=== PATIENT | male | born 1980 | race Caucasian/White ===

== ENCOUNTER 2020-03-05 10:04 | Observation (INO) | payer MEDICAID ==
[2020-03-05 10:09] VITALS: RESP 18; TEMP 97.4
[2020-03-05] MEDS ORDERED: SODIUM CHLORIDE 0.9% 500 ML 500 ML IV STA (10:21)
--- NOTE | 2020-03-05 10:29 | ED ---
Chest Pain HPI - General Chief Complaint: Chest Pain Stated Complaint: Chest Pain Time Seen by Provider: 03/05/20 10:12 Source: patient, RN notes reviewed Mode of arrival: wheelchair Limitations: no limitations - History of Present Illness Initial Comments: This a 40-year-old male presents emergency Department chief complaint of chest discomfort. Patient states started yesterday while walking. He states he started walking short distances when he had a sudden onset of left-sided chest pressure and pain. He states he does not feel short of breath. Nothing makes it feel better or worse. He feels occasionally that the pain does radiate to his back/ left shoulder. Patient denies any trauma no rashes. Patient states is no history of coronary disease denies hypertension, hyperlipidemia, diabetes, smoking history. Patient states he has asthma but has no complaints of that at this time. He states the pain is had intermittent some of heartburn in which she took multiple Tums, Pepto-Bismol with no symptom symptoms. Patient has no complaints of abdominal pain, nausea, vomiting, diaphoresis and diarrhea constipation. Patient denies any leg pain or leg swelling - Related Data Home Medications Medication Instructions Recorded Confirmed Albuterol Inhaler [Ventolin Hfa 2 puff INHALATION RT-QID PRN 03/05/20 03/05/20 Inhaler] Lisdexamfetamine Dimesylate 30 mg PO QAM 03/05/20 03/05/20 [Vyvanse] Allergies Allergy/AdvReac Type Severity Reaction Status Date / Time amoxicillin [Amoxicillin] Allergy Dyspnea Verified 03/05/20 10:50 corn [[place]] Allergy Dyspnea Verified 03/05/20 10:50 house dust [House Dust] Allergy Dyspnea Verified 03/05/20 10:50 mold Allergy Dyspnea Verified 03/05/20 10:50 peanut Allergy Dyspnea Verified 03/05/20 10:50 Penicillins Allergy Dyspnea Verified 03/05/20 10:50 tree nut Allergy Dyspnea Verified 03/05/20 10:50 Review of Systems ROS Statement: Those systems with pertinent positive or pertinent negative responses have been documented in the HPI. ROS Other: All systems not noted in ROS Statement are negative. EKG Findings - EKG Comments: EKG Findings:: EKG performed at 10:21 sinus tachycardia rate of 112 VA 136 QRS 84 QT/QTC 336/458 - EKG Results: EKG: interpreted by ERMD Past Medical History Past Medical History: Asthma History of Any Multi-Drug Resistant Organisms: None Reported Past Surgical History: Adenoidectomy, Tonsillectomy Past Psychological History: No Psychological Hx Reported Smoking Status: Never smoker Past Alcohol Use History: None Reported Past Drug Use History: None Reported General Exam Limitations: no limitations General appearance: alert, in no apparent distress Head exam: Present: atraumatic, normocephalic, normal inspection Eye exam: Present: normal appearance, PERRL, EOMI. Absent: scleral icterus, conjunctival injection, periorbital swelling ENT exam: Present: normal exam, normal oropharynx, mucous membranes moist Neck exam: Present: normal inspection, full ROM. Absent: tenderness, meningismus, lymphadenopathy Respiratory exam: Present: normal lung sounds bilaterally. Absent: respiratory distress, wheezes, rales, rhonchi, stridor Cardiovascular Exam: Present: normal rhythm, tachycardia, normal heart sounds. Absent: systolic murmur, diastolic murmur, rubs, gallop, clicks GI/Abdominal exam: Present: soft, normal bowel sounds. Absent: distended, tenderness, guarding, rebound, rigid Extremities exam: Absent: pedal edema, calf tenderness Neurological exam: Present: alert, oriented X3, CN II-XII intact Skin exam: Present: warm, dry, intact, normal color. 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 Patient had mild tachycardia some mild EKG changes. Workup was negative. Concerning symptoms for ACS. Patient will be admitted for further evaluation treatment. Disposition Clinical Impression: Chest pain Disposition: ADMITTED IP TO THIS [facility] Referrals: Jourdan Maurer III, MD [Primary Care Provider] - 1-2 days
[2020-03-05 10:49] LABS: Basophils # (A) 0.1 k/uL (0-0.2); Basophils % (A) 1 %; Eosinophils # (A) 0.4 k/uL (0-0.7); Eosinophils % (A) 4 %; HCT 50.2 % (39.0-53.0); HGB 16.4 gm/dL (13.0-17.5); Lymphocytes # (A) 2.3 k/uL (1.0-4.8); Lymphocytes % (A) 26 %; MCH 28.9 pg (25.0-35.0); MCHC 32.7 g/dL (31.0-37.0); MCV 88.4 fL (80.0-100.0); Mean Platelet Volume 7.9; Monocytes # (A) 0.4 k/uL (0-1.0); Monocytes % (A) 4 %; Neutrophils # (A) 5.6 k/uL (1.3-7.7); Neutrophils % (A) 64 %; Platelet Count 315 k/uL (150-450); RBC 5.67 m/uL (4.30-5.90); WBC 8.8 k/uL (3.8-10.6)
--- NOTE | 2020-03-05 10:53 | XR ---
EXAMINATION TYPE: XR chest 2V DATE OF EXAM: 03/05/2020 COMPARISON: NONE HISTORY: Chest pain TECHNIQUE: Frontal and lateral views of the chest are obtained. FINDINGS: There is no focal air space opacity, pleural effusion, or pneumothorax seen. The cardiac silhouette size is within normal limits. The osseous structures are intact. There are overlying car diac leads. Patient is rotated. IMPRESSION: No acute cardiopulmonary process.
[2020-03-05 10:58] LABS: ALT 68 U/L (4-49); AST 47 U/L (17-59); African American GFR (CKD) >90 (>60 ml/min/1.73 sqM); Albumin 4.7 g/dL (3.5-5.0); Alkaline Phosphatase 105 U/L (38-126); Anion Gap 13 mmol/L; Blood Urea Nitrogen 12 mg/dL (9-20); Calcium 10.1 mg/dL (8.4-10.2); Carbon Dioxide 21 mmol/L (22-30); Chloride 105 mmol/L (98-107); Creatine Kinase 78 U/L (55-170); Glucose 110 mg/dL (74-99); Magnesium 1.9 mg/dL (1.6-2.3); Non-African American GFR(CKD) >90 (>60 ml/min/1.73 sqM); Potassium 4.5 mmol/L (3.5-5.1); Sodium 139 mmol/L (137-145); Total Protein 8.1 g/dL (6.3-8.2)
[2020-03-05 11:02] LABS: D-Dimer 0.22 mg/L FEU (<0.60); INR 0.9 (<1.2); Partial Thromboplastin Time 23.3 sec (22.0-30.0); Prothrombin Time 9.8 sec (9.0-12.0)
[2020-03-05] MEDS ORDERED: NITROGLYCERIN SL TABS 0.4 MG TAB SUBLINGUAL PRN (12:39)
[2020-03-05] MEDS ORDERED: HEPARIN SODIUM,PORCINE 5,000 UNIT/ML 1 ML VIAL IV PRN (12:39)
[2020-03-05] MEDS ORDERED: ASPIRIN 81 MG PO STA (12:39)
[2020-03-05] MEDS ORDERED: HEPARIN SODIUM,PORCINE 5,000 UNIT/ML 1 ML VIAL IV ONE (12:39)
[2020-03-05] MEDS ORDERED: HEPARIN SOD,PORK IN 0.45% NACL 25,000 UNIT in 0.45% NACL 1 250ML.BAG IV SCH (12:45)
[2020-03-05] MEDS ORDERED: HYDROcodone/APAP 5-325MG 1 EACH TAB PO PRN (13:57)
[2020-03-05] MEDS ORDERED: ALPRAZolam 0.25 MG TAB PO PRN (13:57)
[2020-03-05] MEDS ORDERED: TEMAZEPAM 15 MG CAP PO PRN (13:57)
[2020-03-05] MEDS ORDERED: ALBUTEROL NEBULIZED 2.5 MG/3 ML INHALATION PRN (14:02)
[2020-03-05 14:47] LABS: ALT 61 U/L (4-49); AST 41 U/L (17-59); African American GFR (CKD) >90 (>60 ml/min/1.73 sqM); Alkaline Phosphatase 92 U/L (38-126); Anion Gap 8 mmol/L; Blood Urea Nitrogen 12 mg/dL (9-20); Calcium 9.2 mg/dL (8.4-10.2); Carbon Dioxide 25 mmol/L (22-30); Chloride 106 mmol/L (98-107); Glucose 90 mg/dL (74-99); Non-African American GFR(CKD) >90 (>60 ml/min/1.73 sqM); Sodium 139 mmol/L (137-145)
--- NOTE | 2020-03-05 14:50 | HP ---
HISTORY AND PHYSICAL DATE OF SERVICE: 03/05/2020 CHIEF COMPLAINT: Chest pain. HISTORY OF PRESENT ILLNESS: This 40-year-old gentleman with a past medical history of asthma, adenoidectomy, tonsillectomy, being followed by Dr. Maurer in the outpatient setting, patient today this morning woke up with chest pain left-sided, which is mild to moderate intensity which is also radiating to the left shoulder and left scapular pain. The pain was precipitated by walking short distances. There is no history of shortness of breath associated palpitations, sweating also, The patient came to [facility] and admitted for further evaluation and treatment. There is no history of fever, rigors or chills. The EKG showed some nonspecific ST-T changes in inferior leads. PAST MEDICAL HISTORY: History of asthma, history of adenoidectomy, tonsillectomy. MEDICATIONS: Home medications are: Vyvanse, 30 mg p.o. q.a.m. and Ventolin 2 puffs q.i.d. p.r.n. ALLERGIES: AMOXICILLIN, CORN, HOUSE DUST, MOLD, PEANUTS, PENICILLIN, TREE NUTS. FAMILY HISTORY: History of heart disease in grandparents in 50s. SOCIAL HISTORY: No history of smoking. No history of alcohol intake. REVIEW OF SYSTEMS: ENT: No diminished vision/hearing. CARDIOVASCULAR as mentioned earlier. RESPIRATORY: As mentioned earlier. GI no nausea or vomiting. no dysuria. NERVOUS SYSTEM: No numbness or weakness. ALLERGY/IMMUNOLOGY: No history of asthma or hayfever. MUSCULOSKELETAL as mentioned earlier HEMATOLOGY/ONCOLOGY: No history of anemia. ENDOCRINE: No history of diabetes or hypothyroidism. CONSTITUTIONAL: As mentioned. DERMATOLOGY: Negative. RHEUMATOLOGY: Negative. PSYCHIATRY: As mentioned earlier. PHYSICAL EXAMINATION: Alert and oriented times three. Pulse is 101. Blood pressure is 121/95, respiration 18, temperature 97.4, pulse ox 98% on room air. HEENT: Conjunctivae normal. NECK: No JVD. CARDIOVASCULAR: S1, S2 normal. RESPIRATIONS: Breath sounds diminished in the bases. No rhonchi. No crackles. ABDOMEN: Soft, nontender. No mass palpable. LEGS: No edema, no swelling. NERVOUS SYSTEM: Higher functions as mentioned earlier. Moves all 4 limbs. No focal motor or sensory deficits. LYMPHATICS: No lymph nodes palpable in the neck, axillae or groin. SKIN: No ulcer, rash or bleeding. JOINTS: No active deforming arthropathy. LABS: At this time show CBC within normal limits. CO2 is 21 and glucose 110, ALT 68. ASSESSMENT: 1. Chest pain possible unstable angina, possibly musculoskeletal. 2. Sinus tachycardia with ST changes. 3. History of asthma. 4. History of adenoidectomy. 5. History of tonsillectomy. 6. Obesity with body mass index of 37.4. 7. Increased ALT, increased random blood sugar. RECOMMENDATION: This 40-year-old gentleman who presented with multiple medical issues, we will monitor the patient closely. Continue the current management and symptomatic treatment. Rule out myocardial infarction. Cardiology consultation. Possible stress test. Otherwise, continue to monitor. We will repeat ALT and blood sugars. Continue to monitor. Further recommendations to follow. A copy of this dictation being forwarded to Dr. Maurer who is the primary care physician. MMFIDELL / BYRONN: [id number] /
[2020-03-05 21:54] VITALS: BP 143/87; PULSE 90
[2020-03-06] MEDS ORDERED: ASPIRIN 325 MG TAB PO SCH (09:00)
[2020-03-06] MEDS ORDERED: LISDEXAMFETAMINE DIMESYLATE 30 MG PO SCH (09:00)
--- NOTE | 2020-03-06 09:00 | ECHOF ---
Referral Reason:chest pain MEASUREMENTS -------- HEIGHT: 180.3 cm WEIGHT: 121.6 kg BP: 121/94 RVIDd: 3.1 cm (< 3.3) IVSd: 1.3 cm (0.6 - 1.1) LVIDd: 4.6 cm (3.9 - 5.3) LVPWd: 1.3 cm (0.6 - 1.1) IVSs: 1.4 cm LVIDs: 2.8 cm LVPWs: 1.5 cm LA Diam: 2.8 cm (2.7 - 3.8) LAESV Index (A-L): 18.46 ml/m Ao Diam: 3.1 cm (2.0 - 3.7) AV Cusp: 2.2 cm (1.5 - 2.6) MV EXCURSION: 11.453 mm (> 18.000) MV EF SLOPE: 56 mm/s (70 - 150) EPSS: 0.8 cm MV E Yadiel: 0.88 m/s MV DecT: 207 ms MV A Yadiel: 0.85 m/s MV E/A Ratio: 1.03 FINDINGS -------- Sinus rhythm. This was a technically difficult study with suboptimal apical views. The left ventricular size is normal. There is mild concentric left ventricular hypertrophy. Overa ll left ventricular systolic function is normal with, an EF between 60 - 65 %. The right ventricle is normal in size. The left atrial size is normal. The right atrium is normal in size. The aortic valve is trileaflet and appears structurally normal. The mitral valve is normal. The tricuspid valve appears structurally normal. There is no pulmonic regurgitation present. The aortic root size is normal. Normal inferior vena cava with normal inspiratory collapse consistent with estimated right atrial pre ssure of 5 mmHg. There is no pericardial effusion. CONCLUSIONS -------- 1. Sinus rhythm. 2. This was a technically difficult study with suboptimal apical views. 3. The left ventricular size is normal. 4. There is mild concentric left ventricular hypertrophy. 5. Overall left ventricular systolic function is normal with, an EF between 60 - 65 %. 6. The right ventricle is normal in size. 7. The left atrial size is normal. 8. The right atrium is normal in size. 9. The aortic valve is trileaflet and appears structurally normal. 10. The mitral valve is normal. 11. The tricuspid valve appears structurally normal. 12. There is no pulmonic regurgitation present. 13. The aortic root size is normal. 14. Normal inferior vena cava with normal inspiratory collapse consistent with estimated right atrial pressure of 5 mmHg. 15. There is no pericardial effusion. INSTRUCTOR PROGRAMMABLE CONTR[employer]LLERS: Kelley Estrada RDCS
== END 2020-03-05 21:43 | disposition left against medical advice (07) ==
LOC: EC 10:04 → 1SOBS 13:15
PROVIDERS: ADMIT Hospitalist; ATTEND Hospitalist
DX: R07.89 Other chest pain (principal); R00.0 Tachycardia, unspecified; J45.909 Unspecified asthma, uncomplicated; R12 Heartburn; E66.9 Obesity, unspecified; Z68.37 Body mass index [BMI] 37.0-37.9, adult; R74.0 Nonspecific elevation of levels of transaminase and lactic acid dehydrogenase [LDH]; R73.09 Other abnormal glucose; Z20.828 Contact with and (suspected) exposure to other viral communicable diseases; Z79.899 Other long term (current) drug therapy; Z91.018 Allergy to other foods; Z91.010 Allergy to peanuts; Z88.0 Allergy status to penicillin; Z91.048 Other nonmedicinal substance allergy status; Z98.890 Other specified postprocedural states; Z82.49 Family history of ischemic heart disease and other diseases of the circulatory system
CPT/HCPCS: 96376; 96361; 96365; 96366; 99285; 36415; 93005; 93306; 85379; 80053; 82550; 83690; 83735; 84443; 84484; 85025; 85610; 85730; 71046; G0378; U0003; J1644 ×2; Q9950

== ENCOUNTER → 2021-05-29 | Outpatient (CLI) | payer MEDICAID | END | disposition home or self-care (01) | LOC: LABWHC1 16:26 | PROVIDERS: ATTEND Family Medicine | DX: Z20.822 Contact with and (suspected) exposure to COVID-19 (principal); R50.9 Fever, unspecified | CPT/HCPCS: 87502; U0003; C9803; U0005 ==

== ENCOUNTER 2021-07-09 11:10 | Inpatient (IN) | payer MEDICAID ==
[2021-07-09 12:31] LABS: Amphetamine Screen,Urine Not Detected (NotDetected); Barbiturate Screen,Urine Not Detected (NotDetected); Benzodiazepines Screen,Urine Not Detected (NotDetected); Cocaine Screen,Urine Not Detected (NotDetected); Methadone Screen, Urine Not Detected (NotDetected); Opiate Screen,Urine Not Detected (NotDetected); Oxycodone Screen, Urine Not Detected (NotDetected); Phencyclidine Screen,Urine Not Detected (NotDetected); Tricyclic Antidepressant,Urine Not Detected (NotDetected); Urn Cannabinoid Scrn Not Detected (NotDetected)
--- NOTE | 2021-07-09 13:34 | ED ---
Psych HPI - General Chief Complaint: Psychiatric Symptoms Stated Complaint: mental health Time Seen by Provider: 07/09/21 11:46 Source: patient, family, RN notes reviewed Mode of arrival: ambulatory - History of Present Illness Initial Comments: Patient is a 41-year-old male that presents to emergency department complaining of increased depression and suicidal ideations. He notes that he was in a park his car describes and running a door closed. Patient notes that something seems be going on. He notes that he's been talking to voices and people that aren't there. Patient was otherwise well-appearing. He denied any chest pain first breath headache nausea vomiting diarrhea constipation fever fatigue chills. - Related Data Home Medications Medication Instructions Recorded Confirmed Albuterol Inhaler [Ventolin Hfa 2 puff INHALATION RT-QID PRN 03/05/20 07/09/21 Inhaler] Fluticasone/Salmeterol [Advair 1 puff INHALATION RT-BID 07/09/21 07/09/21 250-50 Diskus] Montelukast Sodium [Singulair] 10 mg PO HS 07/09/21 07/09/21 Omeprazole [PriLOSEC] 20 mg PO HS 07/09/21 07/09/21 allopurinoL [Zyloprim] 200 mg PO HS 07/09/21 07/09/21 Allergies Allergy/AdvReac Type Severity Reaction Status Date / Time amoxicillin [Amoxicillin] Allergy Dyspnea Verified 07/09/21 12:53 corn [[place]] Allergy Dyspnea Verified 07/09/21 12:53 house dust [House Dust] Allergy Dyspnea Verified 07/09/21 12:53 mold Allergy Dyspnea Verified 07/09/21 12:53 peanut Allergy Dyspnea Verified 07/09/21 12:53 Penicillins Allergy Dyspnea Verified 07/09/21 12:53 tree nut Allergy Dyspnea Verified 07/09/21 12:53 Review of Systems ROS Statement: Those systems with pertinent positive or pertinent negative responses have been documented in the HPI. ROS Other: All systems not noted in ROS Statement are negative. Past Medical History Past Medical History: Asthma, GERD/Reflux, Pneumonia, Seizure Disorder Additional Past Medical History / Comment(s): Bronchitis, febrile seizures as a child History of Any Multi-Drug Resistant Organisms: None Reported Past Surgical History: Adenoidectomy, Tonsillectomy Past Anesthesia/Blood Transfusion Reactions: No Reported Reaction Past Psychological History: No Psychological Hx Reported Smoking Status: Never smoker Past Alcohol Use History: None Reported Past Drug Use History: None Reported - Past Family History Father Family Medical History: No Reported History Mother Family Medical History: No Reported History Additional Family Medical History / Comment(s): Mother is healthy General Exam Limitations: no limitations General appearance: alert, in no apparent distress Head exam: Present: atraumatic, normocephalic, normal inspection Eye exam: Present: normal appearance, PERRL, EOMI. Absent: scleral icterus, conjunctival injection, periorbital swelling ENT exam: Present: normal exam, mucous membranes moist Neck exam: Present: normal inspection Respiratory exam: Present: normal lung sounds bilaterally. Absent: respiratory distress, wheezes, rales, rhonchi, stridor Cardiovascular Exam: Present: regular rate, normal rhythm, normal heart sounds. Absent: systolic murmur, diastolic murmur, rubs, gallop, clicks GI/Abdominal exam: Present: soft, normal bowel sounds. Absent: distended, tenderness, guarding, rebound, rigid Extremities exam: Present: normal inspection, full ROM, normal capillary refill. Absent: tenderness, pedal edema, joint swelling, calf tenderness Neurological exam: Present: alert, oriented X3 Psychiatric exam: Present: depressed, suicidal ideation. Absent: anxious, flat affect, manic, homicidal ideation Skin exam: Present: warm, dry, intact, normal color. Absent: rash Course Vital Signs 07/09/21 11:27 Temperature 98.3 F Pulse Rate 112 H Respiratory 20 Rate Blood Pressure 148/95 O2 Sat by Pulse 96 Oximetry Medical Decision Making - Medical Decision Making 41-year-old male complaining of depression and suicidal ideations. Breath alcohol test, and urine drug screen ordered. Patient is cleared for EPS evaluation. Patient will be admitted to inpatient psych. Case discussed with Dr. Emmanuel - Lab Data Lab Results 07/09/21 Range/Units 12:07 Urine Opiates Screen Not Detected (NotDetected) Ur Oxycodone Screen Not Detected (NotDetected) Urine Methadone Screen Not Detected (NotDetected) Ur Propoxyphene Screen Not Detected (NotDetected) Ur Barbiturates Screen Not Detected (NotDetected) U Tricyclic Antidepress Not Detected (NotDetected) Ur Phencyclidine Scrn Not Detected (NotDetected) Ur Amphetamines Screen Not Detected (NotDetected) U Methamphetamines Scrn Not Detected (NotDetected) U Benzodiazepines Scrn Not Detected (NotDetected) Urine Cocaine Screen Not Detected (NotDetected) U Marijuana (THC) Screen Not Detected (NotDetected) Disposition Clinical Impression: Suicidal ideation Disposition: ADMITTED IP TO THIS [facility] Condition: Stable Is patient prescribed a controlled substance at d/c from ED?: No Referrals: Jourdan Maurer III, MD [Primary Care Provider] - 1-2 days Time of Disposition: 13:39
[2021-07-09] MEDS ORDERED: ACETAMINOPHEN TAB 325 MG TAB PO PRN (14:47)
[2021-07-09] MEDS ORDERED: ALBUTEROL HFA INHALER INHALATION PRN (14:47)
[2021-07-09] MEDS ORDERED: MAGNESIUM HYDROXIDE 2,400 MG/10 ML CUP PO PRN (14:47)
[2021-07-09] MEDS ORDERED: MAG HYDROX/AL HYDROX/SIMETH 30 ML CUP PO PRN (14:47)
[2021-07-09] MEDS ORDERED: haloperidoL 5 MG TAB PO PRN (14:49)
[2021-07-09] MEDS ORDERED: HALOPERIDOL LACTATE 5 MG/ML 1 ML VIAL IM PRN (14:49)
[2021-07-09] MEDS ORDERED: LORazepam 2 MG/ML INJ IM PRN (14:49)
[2021-07-09] MEDS ORDERED: NICOTINE 14MG/24HR PATCH TRANSDERM SCH (15:00)
[2021-07-09 15:17] LABS: Appearance,Urine Clear (Clear); Bilirubin,Urine Negative (Negative); Blood,Urine Negative (Negative); Color,Urine Yellow; Glucose,Urine (UA) Negative (Negative); Ketones,Urine Negative (Negative); Leukocyte Esterase,Urine Negative (Negative); Nitrite,Urine Negative (Negative); PH, Urine 5.5 (5.0-8.0); Protein,Urine Negative (Negative); Specific Gravity,Urine 1.016 (1.001-1.035); Urobilinogen,Urine <2.0 mg/dL (<2.0)
[2021-07-09] MEDS: LORazepam 1 MG TAB PO PRN (15:53)
[2021-07-09] MEDS: NICOTINE GUM (POLACRILEX) 2 MG GUM BUCCAL PRN ×2 (18:29→22:27)
[2021-07-09] MEDS ORDERED: SYMBICORT 80-4.5 MCG INHALER INHALATION SCH (20:00)
[2021-07-09] MEDS: MONTELUKAST 10 MG TAB PO SCH (20:37)
[2021-07-09] MEDS: PANTOPRAZOLE 40 MG TABLET PO SCH (20:37)
[2021-07-09] MEDS: allopurinoL 100 MG TAB PO SCH (20:38)
[2021-07-10] MEDS: SYMBICORT 80-4.5 MCG INHALER (MHU) INHALATION SCH ×2 (08:14→20:52)
[2021-07-10] MEDS: NICOTINE GUM (POLACRILEX) 2 MG GUM BUCCAL PRN ×5 (08:14→20:40)
[2021-07-10] MEDS ORDERED: hydrOXYzine pamoate 25 MG CAP PO PRN (11:07)
--- NOTE | 2021-07-10 11:16 | P.HP ---
Psychiatric H&P - . H&P Date: 07/10/21 History & Physical: Allergies Allergy/AdvReac Type Severity Reaction Status Date / Time amoxicillin Amoxicillin Allergy Dyspnea Verified 07/09/21 12:53 corn [place] Allergy Dyspnea Verified 07/09/21 12:53 house dust House Dust Allergy Dyspnea Verified 07/09/21 12:53 mold Allergy Dyspnea Verified 07/09/21 12:53 peanut Allergy Dyspnea Verified 07/09/21 12:53 Penicillins Allergy Dyspnea Verified 07/09/21 12:53 tree nut Allergy Dyspnea Verified 07/09/21 12:53 Vital Signs Temp 98.3 F 07/10/21 06:56 Pulse 89 07/10/21 06:56 Resp 16 07/10/21 06:56 BP 119/81 07/10/21 06:56 Pulse Ox 97 07/09/21 15:30 Intake & Output 07/09/21 07/10/21 07/10/21 18:59 06:59 18:59 Weight 130.181 kg Laboratory Last Values Urine Color Yellow 07/09/21 12:07 Urine Appearance Clear (Clear) 07/09/21 12:07 Urine pH 5.5 (5.0-8.0) 07/09/21 12:07 Ur Specific [place] 1.016 (1.001-1.035) 07/09/21 12:07 Urine Protein Negative (Negative) 07/09/21 12:07 Urine Glucose (UA) Negative (Negative) 07/09/21 12:07 Urine Ketones Negative (Negative) 07/09/21 12:07 Urine Blood Negative (Negative) 07/09/21 12:07 Urine Nitrite Negative (Negative) 07/09/21 12:07 Urine Bilirubin Negative (Negative) 07/09/21 12:07 Urine Urobilinogen <2.0 mg/dL (<2.0) 07/09/21 12:07 Ur Leukocyte Esterase Negative (Negative) 07/09/21 12:07 Urine Opiates Screen Not Detected (NotDetected) 07/09/21 12:07 Ur Oxycodone Screen Not Detected (NotDetected) 07/09/21 12:07 Urine Methadone Screen Not Detected (NotDetected) 07/09/21 12:07 Ur Propoxyphene Screen Not Detected (NotDetected) 07/09/21 12:07 Ur Barbiturates Screen Not Detected (NotDetected) 07/09/21 12:07 U Tricyclic Antidepress Not Detected (NotDetected) 07/09/21 12:07 Ur Phencyclidine Scrn Not Detected (NotDetected) 07/09/21 12:07 Ur Amphetamines Screen Not Detected (NotDetected) 07/09/21 12:07 U Methamphetamines Scrn Not Detected (NotDetected) 07/09/21 12:07 U Benzodiazepines Scrn Not Detected (NotDetected) 07/09/21 12:07 Urine Cocaine Screen Not Detected (NotDetected) 07/09/21 12:07 U Marijuana (THC) Screen Not Detected (NotDetected) 07/09/21 12:07 Coronavirus (PCR) Not Detected (Not Detectd) 07/09/21 13:34 07/10/21 11:10 IDENTIFYING DATA: Patient is a 41-year-old male who is currently lives with his and 2 kids. They live in a house. 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 HPI: Patient presented to the hospital yesterday complaining of auditory hallucinations. Patient was admitted voluntarily to the psychiatric unit. Patient was complaining of these auditory hallucinations along with anxiety which have been increasing for the past 6 months. He states that the voices mainly been having conversations with himself and talking to one another and he finds that he has been actually talking to them as well. He states that these are not negative voices and they're not telling him to do anything. He states that he has been having an increase in his stress and problems at work due to "behavior changes". He was fairly vague about why he lost his job one week ago. He states that he is working about 60-70 hours a week. His UDS and UA was negative. He claims that he has been feeling mildly depressed and anxious during the day. He states that he was having passive suicidal thoughts however no intent or plan. He is denying any current suicidal thoughts. He states that his sleep has been poor in quality. He admits to a fair appetite. He states that he does have some paranoia and has been checking the windows at times in his house and he does not know why. He is denying any drug use. Patient denies any suicidal or homicidal ideations intent or plan. At this time patient denies any auditory or visual hallucinations. Patient denies any flight of ideas racing thoughts and increased in goal directed behavior. Patient admits to using nicotine gum claims that he quit cigarettes recently. PAST PSYCHIATRIC HISTORY: Patient states that he has no psychiatric history except for ADD when he was a child. Patient denies being on any psychiatric medications. Patient denies any previous psychiatric hospitalizations. Patient denies any psychiatric outpatient follow-up. Patient denies any history of suicide attempts in the past. PMH: Asthma ALLERGIES: as per EMR CHEMICAL DEPENDENCY HISTORY: as per HPI FAMILY PSYCHIATRIC/SUBSTANCE USE HISTORY: He states that his grandmother had depression. SOCIAL HISTORY: Patient was born and raised in [facility]. He states that he completed high school and has his college degree in business administration and a bachelor's degree. He denies any legal history. He claimed that he is currently and has 2 kids and lives in a house. 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 MENTAL STATUS EXAM: General Appearance: Patient appears to be overweight, balding, stated age is alert, directable, and attempts to cooperate. Patient appears to have fair hygiene and grooming. Behavior: Patient is seated without any agitated behavior. Hesitant however attempts to cooperate. Speech: Patient's speech is fluent and nonpressured. Mood/Affect: Patient reports their mood is depressed, affect is congruent and constricted. Suicidality/Homicidality: Patient denies having any homicidal ideation intent or plan. Denies any suicidal ideations intent or plan Perceptions: Patient denies any visual hallucinations and admits to auditory hallucinations as noted above. Though content/process: There is no evidence of any delusional thought content and thought process is linear and goal-directed. Memory and concentration: AOX3, grossly intact for the purposes of this session. Can spell "WORLD" backwards Judgment and insight: Fair STRENGTHS/WEAKNESSES: strength is that patient is resilient. Weakness is that patient has financial difficulties and recently lost his job. INTELLECT: average IMPRESSIONS: Psychosis unspecified, rule out secondary to a general medical condition versus organic versus brief psychotic episode. Nicotine dependence PLAN: -Patient is admitted under voluntary status to MHU for stabilization of psychiatric symptoms and safety. Patient has signed adult voluntary form and medication consent and is placed in patient's chart. -Medications : Will start patient on Geodon 20 mg twice a day for psychosis. Vi staril when necessary for anxiety. Trazodone 25 mg daily at bedtime for insomnia/mood. -Ativan and Haldol PRN for agitation/aggression -check ecg, tsh, vit b12 and FA. Will also need to eventually obtain a CT head to rule out organic causes of psychosis. -Patient was informed of the risks, benefits and side effects of the medication and patient verbally consented to taking the medications. Patient signed med consent form and was placed in chart. -Internal Medicine consult to perform medical evaluation and physical. -NRT - nicotine gum -SW on board for discharge planning. Encourage patient to participate in groups to work on coping skills.
[2021-07-10] MEDS: ZIPRASIDONE 20 MG CAP PO SCH ×2 (11:50→20:40)
[2021-07-10] MEDS: LORazepam 1 MG TAB PO PRN (14:57)
--- NOTE | 2021-07-10 15:15 | P.CONS ---
History of Present Illness - Reason for Consult Medical clearance - History of Present Illness Patient is complaining of anxiety and palpitations are secondary to anxiety and chest pressure secondary to anxiety. Patient denied any fever chills nausea vomiting abdominal pain dysuria cough REVIEW OF SYSTEMS: CONSTITUTIONAL: No fever, no malaise, no fatigue. HEENT: No recent visual problems or hearing problems. Denied any sore throat. CARDIOVASCULAR: Noorthopnea, PND, no syncope. PULMONARY: No shortness of breath, no cough, no hemoptysis. GASTROINTESTINAL: No diarrhea, no nausea, no vomiting, no abdominal pain. NEUROLOGICAL: No headaches, no weakness, no numbness. HEMATOLOGICAL: Denies any bleeding or petechiae. GENITOURINARY: Denies any burning micturition, frequency, or urgency. MUSCULOSKELETAL/RHEUMATOLOGICAL: Denies any joint pain, swelling, or any muscle pain. ENDOCRINE: Denies any polyuria or polydipsia. The rest of the 14-point review of systems is negative. PHYSICAL EXAMINATION: GENERAL: The patient is alert and oriented x3, not in any acute distress. Well developed, well nourished. HEENT: Pupils are round and equally reacting to light. EOMI. No scleral icterus. No conjunctival pallor. Normocephalic, atraumatic. No pharyngeal erythema. No thyromegaly. CARDIOVASCULAR: S1 and S2 present. No murmurs, rubs, or gallops. PULMONARY: Chest is clear to auscultation, no wheezing or crackles. ABDOMEN: Soft, nontender, nondistended, normoactive bowel sounds. No palpable organomegaly. MUSCULOSKELETAL: No joint swelling or deformity. EXTREMITIES: No cyanosis, clubbing, or pedal edema. NEUROLOGICAL: Gross neurological examination did not reveal any focal deficits. SKIN: No rashes. Assessment and plan -Episodes of anxiety: Management as per primary service -Chest pressure secondary to anxiety we'll obtain an EKG. -Seizure disorder as educated doesn't have any seizures anymore patient is presently not on any antiseizure medication Osteen-history of asthma for which patient is on inhaled steroids and continued Past Medical History Past Medical History: Asthma, GERD/Reflux, Pneumonia, Seizure Disorder Additional Past Medical History / Comment(s): Bronchitis, febrile seizures as a child History of Any Multi-Drug Resistant Organisms: None Reported Past Surgical History: Adenoidectomy, Tonsillectomy Past Anesthesia/Blood Transfusion Reactions: No Reported Reaction Smoking Status: Never smoker - Past Family History Father Family Medical History: No Reported History Mother Family Medical History: No Reported History Additional Family Medical History / Comment(s): Mother is healthy Medications and Allergies Home Medications Medication Instructions Recorded Confirmed Type Albuterol Inhaler [Ventolin Hfa 2 puff INHALATION RT-QID PRN 03/05/20 07/09/21 History Inhaler] Fluticasone/Salmeterol [Advair 1 puff INHALATION RT-BID 07/09/21 07/09/21 History 250-50 Diskus] Montelukast Sodium [Singulair] 10 mg PO HS 07/09/21 07/09/21 History Omeprazole [PriLOSEC] 20 mg PO HS 07/09/21 07/09/21 History allopurinoL [Zyloprim] 200 mg PO HS 07/09/21 07/09/21 History Allergies Allergy/AdvReac Type Severity Reaction Status Date / Time amoxicillin [Amoxicillin] Allergy Dyspnea Verified 07/09/21 12:53 corn [[place]] Allergy Dyspnea Verified 07/09/21 12:53 house dust [House Dust] Allergy Dyspnea Verified 07/09/21 12:53 mold Allergy Dyspnea Verified 07/09/21 12:53 peanut Allergy Dyspnea Verified 07/09/21 12:53 Penicillins Allergy Dyspnea Verified 07/09/21 12:53 tree nut Allergy Dyspnea Verified 07/09/21 12:53 Physical Exam Vitals: Vital Signs Temp Pulse Resp BP Pulse Ox 07/10/21 06:56 98.3 F 89 16 119/81 07/09/21 15:30 98.3 F 99 20 132/93 97
[2021-07-10] MEDS: PANTOPRAZOLE 40 MG TABLET PO SCH (20:40)
[2021-07-10] MEDS: traZODone HCL 50 MG TAB PO SCH (20:40)
[2021-07-10] MEDS: MONTELUKAST 10 MG TAB PO SCH (20:40)
[2021-07-10] MEDS: allopurinoL 100 MG TAB PO SCH (20:40)
[2021-07-11] MEDS: ZIPRASIDONE 20 MG CAP PO SCH ×2 (08:09→20:35)
[2021-07-11] MEDS: SYMBICORT 80-4.5 MCG INHALER (MHU) INHALATION SCH ×2 (08:09→20:35)
[2021-07-11] MEDS: NICOTINE GUM (POLACRILEX) 2 MG GUM BUCCAL PRN ×6 (08:10→20:35)
--- NOTE | 2021-07-11 10:44 | P.PN ---
Progress Note - Text Progress Note Date: 07/11/21 Interval History: Patient was seen wandering the hallways and was directable and agreeable to alpesh marquez with process description writer in the office. Patient claims that he has been going to groups and claims that he is feeling much better today. He states that he feels the medications have been helping him with the voices and they have been improving. He states that he has not heard any voices so far today which she is happy for. He asked several questions about his possible diagnosis and also both schizophre renate and bipolar disorder. He states that his came to visit him yesterday and states that she has been very supportive. He states that he is not experiencing much side effects at this time from the medications. He claims that he did not get any blood work done and is willing to give that today. He states that he has been getting good benefit from the groups. He claims that he misses his family. He was not endorsing any paranoia or delusions today. He states that he was able to sleep very well last night and has a fair appetite. He claims that the Ativan helped with his anxiety however we'll attempt to try Vistaril today if he does feel anxious. At this time patient denies any suicidal or homical ideations, intent or plan. Patient denies any auditory, visual hallucinations. Patient denies any side effects from the medications and has been compliant with meds. Mental Status Exam: General Appearance: Patient appears to be overweight, balding, stated age is alert, directable, and attempts to cooperate. Patient appears to have fair hygiene and grooming. Behavior: Patient is seated without any agitated behavior. Hesitant however attempts to cooperate. Speech: Patient's speech is fluent and nonpressured. Mood/Affect: Patient reports their mood is depressed, affect is congruent and constricted. Suicidality/Homicidality: Patient denies having any homicidal ideation intent or plan. Denies any suicidal ideations intent or plan Perceptions: Patient denies any visual hallucinations and admits to auditory hallucinations as noted above. Though content/process: There is no evidence of any delusional thought content and thought process is linear and goal-directed. Memory and concentration: AOX3, grossly intact for the purposes of this session. Judgment and insight: Fair Assessment Psychosis unspecified, rule out secondary to a general medical condition versus organic versus brief psychotic episode. Nicotine dependence Plan: -Patient continues to meet criteria for inpatient psychiatric admission for symptom stabilization and safety. Patient has signed adult voluntary form and medication consent and was placed in patient's chart. -Medications: Continue Geodon 20 mg twice a day for psychosis. Vistaril when necessary for anxiety and discontinued by mouth Ativan. Continue trazodone 25 mg daily at bedtime for insomnia/mood. -When necessary Ativan and Haldol for agitation/aggression. -reordered tsh, vit b12 and FA, syohilis, comp and cbc with diff as for reason it was cancelled by the lab yesterday. Will also need to eventually obtain a CT head to rule out organic causes of psychosis, this can be done as an outpatient. -NRT - nicotine gum -SW on board for discharge planning. Encouraged the patient to participate in milieu. If patient continues to improve then likely discharge tomorrow back home.
[2021-07-11 11:57] LABS: Basophils % (A) 0 %; Eosinophils # (A) 0.4 k/uL (0-0.7); Eosinophils % (A) 4 %; HCT 46.7 % (39.0-53.0); HGB 16.4 gm/dL (13.0-17.5); Lymphocytes # (A) 2.8 k/uL (1.0-4.8); Lymphocytes % (A) 28 %; MCH 31.4 pg (25.0-35.0); MCHC 35.2 g/dL (31.0-37.0); MCV 89.1 fL (80.0-100.0); Mean Platelet Volume 7.8; Monocytes # (A) 0.4 k/uL (0-1.0); Monocytes % (A) 4 %; Neutrophils # (A) 6.2 k/uL (1.3-7.7); Neutrophils % (A) 62 %; Platelet Count 283 k/uL (150-450); RBC 5.24 m/uL (4.30-5.90); RDW 14.5 % (11.5-15.5); WBC 9.9 k/uL (3.8-10.6)
[2021-07-11 12:09] LABS: ALT 176 U/L (4-49); AST 119 U/L (17-59); African American GFR (CKD) >90 (>60 ml/min/1.73 sqM); Albumin 4.5 g/dL (3.5-5.0); Alkaline Phosphatase 91 U/L (38-126); Anion Gap 12 mmol/L; Blood Urea Nitrogen 15 mg/dL (9-20); Carbon Dioxide 22 mmol/L (22-30); Chloride 106 mmol/L (98-107); Glucose 96 mg/dL (74-99); Non-African American GFR(CKD) 85 (>60 ml/min/1.73 sqM); Potassium 4.3 mmol/L (3.5-5.1); Sodium 140 mmol/L (137-145); Total Bilirubin 1.3 mg/dL (0.2-1.3); Total Protein 7.5 g/dL (6.3-8.2)
[2021-07-11] MEDS ORDERED: INFLUENZA VACC (6 MOS-64 YRS) 60 MCG/0.5 ML SYRINGE IM ONE (12:33)
[2021-07-11] MEDS ORDERED: PNEUMOCOCCAL VACC-PNEUMOVAX 23 25 MCG/0.5 ML VIAL IM ONE (12:34)
[2021-07-11] MEDS: PANTOPRAZOLE 40 MG TABLET PO SCH (20:35)
[2021-07-11] MEDS: allopurinoL 100 MG TAB PO SCH (20:36)
[2021-07-11] MEDS: traZODone HCL 50 MG TAB PO SCH (20:36)
[2021-07-11] MEDS: MONTELUKAST 10 MG TAB PO SCH (20:36)
[2021-07-12 06:37] VITALS: BP 138/78; PULSE 114; RESP 17; TEMP 97.6
[2021-07-12] MEDS: SYMBICORT 80-4.5 MCG INHALER (MHU) INHALATION SCH (08:03)
[2021-07-12] MEDS: ZIPRASIDONE 20 MG CAP PO SCH (08:04)
[2021-07-12] MEDS: NICOTINE GUM (POLACRILEX) 2 MG GUM BUCCAL PRN ×2 (08:21→12:07)
--- NOTE | 2021-07-12 10:21 | P.DS ---
Providers Date of admission: 07/09/21 14:45 Expected date of discharge: 07/12/21 Attending physician: Yaakov Rodriguez MD Consults: 07/09/21 14:47 Consult Physician Routine Consulting Provider: Winsome Tubbs Consult Reason/Comments: H&P and medical Do you want consulting provider notified?: Yes Primary care physician: Jourdan Maurer - Discharge Diagnosis(es) (1) Unspecified psychosis Current Visit: Yes Status: Acute Priority: High (2) Nicotine dependence Current Visit: Yes Status: Acute Priority: Low Hospital Course: Admission HPI: Admission note was completed by magnetic tape typewriter operator "Patient is a 41-year-old male who is currently lives with his and 2 kids. They live in a house. 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 Patient presented to the hospital yesterday complaining of auditory hallucinations. Patient was admitted voluntarily to the psychiatric unit. Patient was complaining of these auditory hallucinations along with anxiety which have been increasing for the past 6 months. He states that the voices mainly been having conversations with himself and talking to one another and he finds that he has been actually talking to them as well. He states that these are not negative voices and they're not telling him to do anything. He states that he has been having an increase in his stress and problems at work due to "behavior changes". He was fairly vague about why he lost his job one week ago. He states that he is working about 60-70 hours a week. His UDS and UA was negative. He claims that he has been feeling mildly depressed and anxious during the day. He states that he was having passive suicidal thoughts however no intent or plan. He is denying any current suicidal thoughts. He states that his sleep has been poor in quality. He admits to a fair appetite. He states that he does have some paranoia and has been checking the windows at times in his house and he does not know why. He is denying any drug use. Patient denies any suicidal or homicidal ideations intent or plan. At this time patient denies any auditory or visual hallucinations. Patient denies any flight of ideas ra cing thoughts and increased in goal directed behavior. Patient admits to using nicotine gum claims that he quit cigarettes recently." Hospital course: Upon admission to the unit patient was directable and agreeable to commence treatment and signed adult voluntary form . Patient got along well with other patients on the unit and followed unit protocol. Patient was compliant with the medications and denied any side effects throughout hospital course. Patient was started on Geodon 20 mg twice a day for psychosis. Vistaril 25 mg when necessary for anxiety. Trazodone 25 mg daily at bedtime for insomnia/mood.. Patient spoke of his stressors and engaged in therapy both group and individual. Patient was also seen by medical team for history and physical exam. Patient had an EKG performed, TSH and vitamin B12 and folic acid along with syphilis and comprehensive panel and CBC with differential. Patient did not receive a computed tomography scan of his head during the course of hospitalization however was advised to obtain this as an outpatient within 1 week of discharge, patient verbally understood and agreed. Patient did have a mildly elevated AST at 119 and ALT 176 and was also advised to follow-up with a liver function tests and his primary care physician for further workup. Throughout the course of the hospitalization patient gradually improved with regards to psychosis, mood, anxiety, sleep and became more future oriented with improved insight and judgment. On the day of discharge patient denied any suicidal or homicidal ideations intent or plan denied any auditory or visual hallucinations. Patient endorsed wanting to live for his health and family. The patient denied any access to guns or weapons. Patient denied any paranoia and did not endorse any delusions. Patient does not have a significant history of substance abuse however was counseled on abstaining from all substances including alcohol and marijuana. Patient was also counseled on the medications and need for regular compliance and was encouraged to follow-up with their outpatient appointment for mental health and also for primary care. Prior to discharge a family meeting will be arranged by drug abuse social worker to answer any questions and ensure safety upon discharge. Mental status exam: General Appearance: Patient appears to be overweight, stated age is alert, pleasant, and cooperative. Patient is in no acute distress and has improved hygiene and grooming Behavior: Patient is calmly seated without any agitated behavior. Speech: Patient's speech is fluent and nonpressured. Mood/Affect: Patient reports their mood is "better", affect is congruent and euthymic. Suicidality/Homicidality: Patient denies having any suicidal or homicidal ideation intent or plan. Perceptions: Patient denies any auditory or visual hallucinations. Though content/process: There is no evidence of any delusional thought content and thought process is linear and goal-directed. more future oriented Memory and concentration: AOX3, grossly intact for the purposes of this session. Can spell "WORLD" backwards correctly. Judgment and insight: improved with guarded prognosis Impression: Psychosis unspecified, rule out secondary to a general medical condition versus organic versus brief psychotic episode Nicotine dependence Plan: -Continue with discharge today as patient has improved and stabilized psychiatrically and is not currently an imminent threat to himself and/or others. -Continue medications: Geodon 20 mg twice a day for psychosis. Vistaril 25 mg twice a day when necessary for anxiety. Trazodone 25 mg daily at bedtime for insomnia/mood. -Patient was counseled on the need for medication compliance and appropriate follow-up at mental health and also primary care for medical issues. Patient verbalized understanding and agreed. -Social work to arrange for and conduct family meeting to ensure safety upon discharge and answer any questions/concerns. Social work also to arrange for patients follow up appointments for psychiatric care along with follow up with primary care provider. Patient did not receive a computed tomography scan of his head during the course of hospitalization however was advised to obtain this as an outpatient within 1 week of discharge, patient verbally understood and agreed. Patient did have a mildly elevated AST at 119 and ALT 176 and was also advised to follow-up with a liver function tests and his primary care physician for further workup. -Patient counseled on abstaining from recreational drugs and marijuana and alco hol. Was informed/educated on the adverse effects on their physical and mental health. Patient verbally agreed and understood. -Patient was instructed to return to the hospital or seek immediate medical care if their psychiatric or medical symptoms do worsen or reoccur. Allergies Allergy/AdvReac Type Severity Reaction Status Date / Time amoxicillin [Amoxicillin] Allergy Dyspnea Verified 07/09/21 12:53 corn [[place]] Allergy Dyspnea Verified 07/09/21 12:53 house dust [House Dust] Allergy Dyspnea Verified 07/09/21 12:53 mold Allergy Dyspnea Verified 07/09/21 12:53 peanut Allergy Dyspnea Verified 07/09/21 12:53 Penicillins Allergy Dyspnea Verified 07/09/21 12:53 tree nut Allergy Dyspnea Verified 07/09/21 12:53 Laboratory Results WBC 9.9 k/uL (3.8-10.6) 07/11/21 11:26 RBC 5.24 m/uL (4.30-5.90) 07/11/21 11:26 Hgb 16.4 gm/dL (13.0-17.5) 07/11/21 11:26 Hct 46.7 % (39.0-53.0) 07/11/21 11:26 MCV 89.1 fL (80.0-100.0) 07/11/21 11:26 MCH 31.4 pg (25.0-35.0) 07/11/21 11:26 MCHC 35.2 g/dL (31.0-37.0) 07/11/21 11:26 RDW 14.5 % (11.5-15.5) 07/11/21 11:26 Plt Count 283 k/uL (150-450) 07/11/21 11:26 MPV 7.8 07/11/21 11:26 Neutrophils % 62 % 07/11/21 11:26 Lymphocytes % 28 % 07/11/21 11:26 Monocytes % 4 % 07/11/21 11:26 Eosinophils % 4 % 07/11/21 11:26 Basophils % 0 % 07/11/21 11:26 Neutrophils # 6.2 k/uL (1.3-7.7) 07/11/21 11:26 Lymphocytes # 2.8 k/uL (1.0-4.8) 07/11/21 11:26 Monocytes # 0.4 k/uL (0-1.0) 07/11/21 11:26 Eosinophils # 0.4 k/uL (0-0.7) 07/11/21 11:26 Basophils # 0.0 k/uL (0-0.2) 07/11/21 11:26 Sodium 140 mmol/L (137-145) 07/11/21 11:26 Potassium 4.3 mmol/L (3.5-5.1) 07/11/21 11:26 Chloride 106 mmol/L (98-107) 07/11/21 11:26 Carbon Dioxide 22 mmol/L (22-30) 07/11/21 11:26 Anion Gap 12 mmol/L 07/11/21 11:26 BUN 15 mg/dL (9-20) 07/11/21 11:26 Creatinine 1.09 mg/dL (0.66-1.25) 07/11/21 11:26 Est GFR (CKD-EPI)AfAm >90 (>60 ml/min/1.73 sqM) 07/11/21 11: Est GFR (CKD-EPI)NonAf 85 (>60 ml/min/1.73 sqM) 07/11/21 11:26 Glucose 96 mg/dL (74-99) 07/11/21 11:26 Calcium 10.0 mg/dL (8.4-10.2) 07/11/21 11:26 Total Bilirubin 1.3 mg/dL (0.2-1.3) 07/11/21 11:26 AST 119 U/L (17-59) H 07/11/21 11:26 ALT 176 U/L (4-49) H 07/11/21 11: Alkaline Phosphatase 91 U/L (38-126) 07/11/21 11:26 Total Protein 7.5 g/dL (6.3-8.2) 07/11/21 11:26 Albumin 4.5 g/dL (3.5-5.0) 07/11/21 11: Vitamin B12 394.0 pg/mL (200.0-944.0) 07/11/21 11: Folate 5.40 ng/mL (4.40-31.00) 07/11/21 11: TSH 2.140 mIU/L (0.465-4.680) 07/11/21 11:26 Urine Color Yellow 07/09/21 12:07 Urine Appearance Clear (Clear) 07/09/21 12:07 Urine pH 5.5 (5.0-8.0) 07/09/21 12:07 Ur Specific [place] 1.016 (1.001-1.035) 07/09/21 12:07 Urine Protein Negative (Negative) 07/09/21 12:07 Urine Glucose (UA) Negative (Negative) 07/09/21 12:07 Urine Ketones Negative (Negative) 07/09/21 12:07 Urine Blood Negative (Negative) 07/09/21 12:07 Urine Nitrite Negative (Negative) 07/09/21 12:07 Urine Bilirubin Negative (Negative) 07/09/21 12:07 Urine Urobilinogen <2.0 mg/dL (<2.0) 07/09/21 12:07 Ur Leukocyte Esterase Negative (Negative) 07/09/21 12:07 Urine Opiates Screen Not Detected (NotDetected) 07/09/21 12:07 Ur Oxycodone Screen Not Detected (NotDetected) 07/09/21 12:07 Urine Methadone Screen Not Detected (NotDetected) 07/09/21 12:07 Ur Propoxyphene Screen Not Detected (NotDetected) 07/09/21 12:07 Ur Barbiturates Screen Not Detected (NotDetected) 07/09/21 12:07 U Tricyclic Antidepress Not Detected (NotDetected) 07/09/21 12:07 Ur Phencyclidine Scrn Not Detected (NotDetected) 07/09/21 12:07 Ur Amphetamines Screen Not Detected (NotDetected) 07/09/21 12:07 U Methamphetamines Scrn Not Detected (NotDetected) 07/09/21 12:07 U Benzodiazepines Scrn Not Detected (NotDetected) 07/09/21 12:07 Urine Cocaine Screen Not Detected (NotDetected) 07/09/21 12:07 U Marijuana (THC) Screen Not Detected (NotDetected) 07/09/21 12:07 Coronavirus (PCR) Not Detected (Not Detectd) 07/09/21 13:34 Vital Signs Temp 97.6 F 07/12/21 06:37 Pulse 114 H 07/12/21 06:37 Resp 17 07/12/21 06:37 BP 138/78 07/12/21 06:37 Pulse Ox 96 07/12/21 06:37 Patient Condition at Discharge: Stable Plan - Discharge Summary New Discharge Prescriptions: New Ziprasidone [Geodon] 20 mg PO BID 30 Days cap hydrOXYzine pamoate [Vistaril] 25 mg PO BID PRN 30 Days cap PRN Reason: Anxiety traZODone HCL [Desyrel] 25 mg PO HS 30 Days tab Nicotine Gum (Polacrilex) [Nicorette] 2 mg BUCCAL Q4HR PRN 28 Days PRN Reason: Nicotine Cravings Acetaminophen Tab [Tylenol] 650 mg PO Q4HR PRN tab PRN Reason: Mild Pain/Discomfort Continue Albuterol Inhaler [Ventolin Hfa Inhaler] 2 puff INHALATION RT-QID PRN PRN Reason: Shortness Of Breath allopurinoL [Zyloprim] 200 mg PO HS Fluticasone/Salmeterol [Advair 250-50 Diskus] 1 puff INHALATION RT-BID Montelukast Sodium [Singulair] 10 mg PO HS Omeprazole [PriLOSEC] 20 mg PO HS Discharge Medication List Albuterol Inhaler [Ventolin Hfa Inhaler] 2 puff INHALATION RT-QID PRN 03/05/20 [History] Fluticasone/Salmeterol [Advair 250-50 Diskus] 1 puff INHALATION RT-BID 07/09/21 [History] Montelukast Sodium [Singulair] 10 mg PO HS 07/09/21 [History] Omeprazole [PriLOSEC] 20 mg PO HS 07/09/21 [History] allopurinoL [Zyloprim] 200 mg PO HS 07/09/21 [History] Acetaminophen Tab [Tylenol] 650 mg PO Q4HR PRN tab 07/12/21 [Rx] Nicotine Gum (Polacrilex) [Nicorette] 2 mg BUCCAL Q4HR PRN 28 Days 07/12/21 [Rx] Ziprasidone [Geodon] 20 mg PO BID 30 Days cap 07/12/21 [Rx] hydrOXYzine pamoate [Vistaril] 25 mg PO BID PRN 30 Days cap 07/12/21 [Rx] traZODone HCL [Desyrel] 25 mg PO HS 30 Days tab 07/12/21 [Rx] Follow up Appointment(s)/Referral(s): [facility] [Outside] - 07/23/21 11:00 am (Renuka Singh) Jourdan Maurer III, MD [Primary Care Provider] - 3 Days (Patient to follow up with primary care Dr regarding elevated Liver Fx test. Dr Rodriguez is also recommending follow up with primary care doctor for a CT of the head with and without contrast. This follow up must me completed in 3 days of discharge,.) Patient Instructions/Handouts: Help Prevent Suicide (DC) Activity/Diet/Wound Care/Special Instructions: Activity and diet as tolerated. Avoid the use of street drugs and alcohol. Take all medications as prescribed. When you are in need of refills on your medications please contact your medical provider and/or outpatient psychiatrist to have this done. Please go to scheduled outpatient appointment for aftercare treatment. If symptoms return or become worse, call the crisis line at and/or go to the nearest emergency room for evaluation. Discharge Disposition: HOME SELF-CARE
== END 2021-07-12 13:00 | disposition home or self-care (01) | DRG 885 ==
LOC: EC 11:10 → 3MHU 14:45
PROVIDERS: ADMIT Psychiatry & Neurology Psychiatry; ATTEND Psychiatry & Neurology Psychiatry
PROC: 3E02340 Introduction of Influenza Vaccine into Muscle, Percutaneous Approach (ICD-10-PCS; principal; 2021-07-11)
PROC: 3E0234Z Introduction of Serum, Toxoid and Vaccine into Muscle, Percutaneous Approach (ICD-10-PCS; 2021-07-11)
DX: F29 Unspecified psychosis not due to a substance or known physiological condition (principal); R45.851 Suicidal ideations; Z20.822 Contact with and (suspected) exposure to COVID-19; Z23 Encounter for immunization; F32.9 Major depressive disorder, single episode, unspecified; J45.909 Unspecified asthma, uncomplicated; K21.9 Gastro-esophageal reflux disease without esophagitis; F41.9 Anxiety disorder, unspecified; G47.00 Insomnia, unspecified; R74.01 Elevation of levels of liver transaminase levels; Z79.51 Long term (current) use of inhaled steroids; Z79.899 Other long term (current) drug therapy; Z90.89 Acquired absence of other organs; Z87.01 Personal history of pneumonia (recurrent); Z86.69 Personal history of other diseases of the nervous system and sense organs; Z56.0 Unemployment, unspecified; Z98.890 Other specified postprocedural states; Z71.41 Alcohol abuse counseling and surveillance of alcoholic; Z71.51 Drug abuse counseling and surveillance of drug abuser; Z91.010 Allergy to peanuts; Z88.0 Allergy status to penicillin; Z91.018 Allergy to other foods; Z91.048 Other nonmedicinal substance allergy status; Z81.8 Family history of other mental and behavioral disorders
CPT/HCPCS: 80053; 80306; 81003; 82075; 82607; 82746; 83036; 84443; 85025; 86780; 87635; 90686; 90732; 93005; 99285

== ENCOUNTER → 2021-11-25 | Outpatient (CLI) | payer MEDICAID ==
--- NOTE | 2021-11-25 09:05 | US ---
EXAMINATION TYPE: US liver DATE OF EXAM: 11/25/2021 COMPARISON: NONE CLINICAL HISTORY: 41-year-old male R94.5 Abnormal results of liver function studies. TECHNIQUE: Multiple sonographic images of the right upper quadrant are obtained. FINDINGS: EXAM MEASUREMENTS: Liver Length: 17.3 cm Gallbladder Wall: 0.1 cm CBD: 0.5 cm Right Kidney: 12.2 x 5.8 x 5.9 cm Coffee Weigher notes: Patient of very large body habitus. Pancreas: Only small portions of the pancreatic neck and body are seen. The head and tail are obscur ed by bowel gas shadowing. Liver: Borderline in size. Increased echogenicity with marked cartilage attenuation. This secondarily limits assessment for focal lesions. Gallbladder: wnl, focal fatty sparing adjacent to GB Evidence for sonographic Azevedo's sign: No CBD: wnl Right Kidney: wnl IMPRESSION: 1. Borderline hepatomegaly (17.3 cm) with moderate to severe hepatic steatosis. 2. No gallstones or biliary ductal dilatation.
== END | disposition home or self-care (01) ==
LOC: RADUSWWP 06:57
PROVIDERS: ATTEND Family Medicine
DX: R16.0 Hepatomegaly, not elsewhere classified (principal); K76.0 Fatty (change of) liver, not elsewhere classified; R94.5 Abnormal results of liver function studies
CPT/HCPCS: 76705

== ENCOUNTER 2021-12-01 07:05 | Emergency (ER) | payer MEDICAID ==
[2021-12-01 07:13] VITALS: TEMP 99.7
[2021-12-01] MEDS ORDERED: IPRATROPIUM 0.5 MG/2.5 ML NEBU INHALATION STA (07:32)
[2021-12-01] MEDS ORDERED: DEXAMETHASONE SOD PHOSPHATE 10 MG/ML 1 ML VIAL IV STA (07:32)
[2021-12-01] MEDS ORDERED: ALBUTEROL NEBULIZED 2.5 MG/3 ML INHALATION STA (07:32)
--- NOTE | 2021-12-01 07:42 | ED ---
General Adult HPI - General Chief complaint: Upper Respiratory Infection Stated complaint: PATSY Time Seen by Provider: 12/01/21 07:15 Source: patient Mode of arrival: ambulatory Limitations: no limitations - History of Present Illness Initial comments: Dictation was produced using DOC[employer] dictation software. please excuse any grammatical, word or spelling errors. Chief Complaint: 41-year-old male past medical history of asthma presents with cough and chest tightness History of Present Illness: 41-year-old male for the last 7 days he has been suffering from URI symptoms. He states that everyone in his household was stricken with URI symptoms. He was tested for Covid and was negative. States that he feels like his lung hurts. It hurts when he takes a deep breath. He's been coughing progressively for the last several days. He has a history of asthma and tried a nebulizer treatment which did not improve his symptoms. His first time he sought any medical attention since the onset of his symptoms. Still having fevers and I did speak he is having temperatures of 104 measured at home. The ROS documented in this emergency department record has been reviewed and confirmed by me. Those systems with pertinent positive or negative responses have been documented in the HPI. All other systems are other negative and/or noncontributory. PHYSICAL EXAM: General Impression: Alert and oriented x3, coughing HEENT: Normocephalic atraumatic, extra-ocular movements intact, pupils equal and reactive to light bilaterally, mucous membranes moist. Cardiovascular: Heart regular rate and rhythm Chest: Able to complete full sentences, no retractions, no tachypnea, diffuse lung and expiratory wheezing Abdomen: abdomen soft, non-tender, non-distended, no organomegaly Musculoskeletal: Pulses present and equal in all extremities, no peripheral edema Motor: no focal deficits noted Neurological: CN II-XII grossly intact, no focal motor or sensory deficits noted Skin: Intact with no visualized rashes Psych: Normal affect and mood ED course: 41-year-old male presents to the emergency department for clinical presentation consistent with asthma exacerbation secondary to viral URI. As upon arrival shows a 91% on room air. Patient coughing excessively however is not showing signs of retractions. He is wheezing diffusely. Laboratory evaluation obtained. CBC, metabolic panel is unremarkable. For panel viral PCR is negative for influenza, RSV or COVID-19. Chest x-ray shows scattered lung markings correlate for atypical pneumonia. Patient reevaluated at bedside at 8:30 AM after having had a DuoNeb treatment with improvement. Patient given one IV push of ceftriaxone and 10 mg of IV Decadron. He states he feels much better. Disposition options were discussed. Patient is agreeable for discharge. Is given prescription for Zithromax pack. He does have a nebulizer at home is advised to continue using his nebulizer [id number] for the next 72 hours. - Related Data Home Medications Medication Instructions Recorded Confirmed Albuterol Inhaler [Ventolin Hfa 2 puff INHALATION RT-QID PRN 03/05/20 07/09/21 Inhaler] Fluticasone/Salmeterol [Advair 1 puff INHALATION RT-BID 07/09/21 07/09/21 250-50 Diskus] Montelukast Sodium [Singulair] 10 mg PO HS 07/09/21 07/09/21 Omeprazole [PriLOSEC] 20 mg PO HS 07/09/21 07/09/21 allopurinoL [Zyloprim] 200 mg PO HS 07/09/21 07/09/21 Previous Rx's Medication Instructions Recorded Acetaminophen Tab [Tylenol] 650 mg PO Q4HR PRN tab 07/12/21 Nicotine Gum (Polacrilex) 2 mg BUCCAL Q4HR PRN 28 Days 07/12/21 [Nicorette] Ziprasidone [Geodon] 20 mg PO BID 30 Days cap 07/12/21 hydrOXYzine pamoate [Vistaril] 25 mg PO BID PRN 30 Days cap 07/12/21 traZODone HCL [Desyrel] 25 mg PO HS 30 Days tab 07/12/21 Albuterol Nebulized (Conc) 2.5 mg INHALATION Q6H 25 Days #300 12/01/21 [Ventolin Nebulized (Conc)] ml Azithromycin [Zithromax Z-pack] 0 mg PO DIRECTED #6 tab 12/01/21 Allergies Allergy/AdvReac Type Severity Reaction Status Date / Time amoxicillin [Amoxicillin] Allergy Dyspnea Verified 07/09/21 12:53 corn [[place]] Allergy Dyspnea Verified 07/09/21 12:53 house dust [House Dust] Allergy Dyspnea Verified 07/09/21 12:53 mold Allergy Dyspnea Verified 07/09/21 12:53 peanut Allergy Dyspnea Verified 07/09/21 12:53 Penicillins Allergy Dyspnea Verified 07/09/21 12:53 tree nut Allergy Dyspnea Verified 07/09/21 12:53 Review of Systems ROS Statement: Those systems with pertinent positive or pertinent negative responses have been documented in the HPI. ROS Other: All systems not noted in ROS Statement are negative. Past Medical History Past Medical History: Asthma, GERD/Reflux, Pneumonia, Seizure Disorder Additional Past Medical History / Comment(s): Bronchitis, febrile seizures as a child History of Any Multi-Drug Resistant Organisms: None Reported Past Surgical History: Adenoidectomy, Tonsillectomy Past Anesthesia/Blood Transfusion Reactions: No Reported Reaction Past Psychological History: Depression Smoking Status: Never smoker Past Alcohol Use History: None Reported Past Drug Use History: None Reported - Past Family History Father Family Medical History: No Reported History Mother Family Medical History: No Reported History Additional Family Medical History / Comment(s): Mother is healthy General Exam Limitations: no limitations Course Vital Signs 12/01/21 12/01/21 12/01/21 07:08 07:59 08:07 Temperature 99.7 F H Pulse Rate 106 H 88 86 Respiratory 20 Rate Blood Pressure 133/81 O2 Sat by Pulse 91 L Oximetry 12/01/21 08:23 Temperature Pulse Rate 98 Respiratory Rate Blood Pressure O2 Sat by Pulse Oximetry Medical Decision Making - Lab Data Result diagrams: 12/01/21 07:43 12/01/21 07:43 Lab Results 12/01/21 12/01/21 12/01/21 Range/Units 07:43 07:43 07:43 WBC 8.1 (3.8-10.6) k/uL RBC 5.23 (4.30-5.90) m/uL Hgb 15.3 (13.0-17.5) gm/dL Hct 45.7 (39.0-53.0) % MCV 87.4 (80.0-100.0) fL MCH 29.2 (25.0-35.0) pg MCHC 33.4 (31.0-37.0) g/dL RDW 14.5 (11.5-15.5) % Plt Count 234 (150-450) k/uL MPV 7.6 Neutrophils % 63 % Lymphocytes % 26 % Monocytes % 4 % Eosinophils % 5 % Basophils % 1 % Neutrophils # 5.1 (1.3-7.7) k/uL Lymphocytes # 2.1 (1.0-4.8) k/uL Monocytes # 0.3 (0-1.0) k/uL Eosinophils # 0.4 (0-0.7) k/uL Basophils # 0.1 (0-0.2) k/uL Sodium 139 (137-145) mmol/L Potassium 3.7 (3.5-5.1) mmol/L Chloride 107 (98-107) mmol/L Carbon Dioxide 22 (22-30) mmol/L Anion Gap 10 mmol/L BUN 9 (9-20) mg/dL Creatinine 1.04 (0.66-1.25) mg/dL Est GFR (CKD-EPI)AfAm >90 (>60 ml/min/1.73 sqM) Est GFR (CKD-EPI)NonAf >90 (>60 ml/min/1.73 sqM) Glucose 137 H (74-99) mg/dL Plasma Lactic Acid Ramone 1.9 (0.7-2.0) mmol/L Calcium 8.3 L (8.4-10.2) mg/dL Magnesium 2.0 (1.6-2.3) mg/dL Influenza Type A (PCR) (Not Detectd) Influenza Type B (PCR) (Not Detectd) RSV (PCR) (Not Detectd) SARS-CoV-2 (PCR) (Not Detectd) 12/01/21 Range/Units 07:43 WBC (3.8-10.6) k/uL RBC (4.30-5.90) m/uL Hgb (13.0-17.5) gm/dL Hct (39.0-53.0) % MCV (80.0-100.0) fL MCH (25.0-35.0) pg MCHC (31.0-37.0) g/dL RDW (11.5-15.5) % Plt Count (150-450) k/uL MPV Neutrophils % % Lymphocytes % % Monocytes % % Eosinophils % % Basophils % % Neutrophils # (1.3-7.7) k/uL Lymphocytes # (1.0-4.8) k/uL Monocytes # (0-1.0) k/uL Eosinophils # (0-0.7) k/uL Basophils # (0-0.2) k/uL Sodium (137-145) mmol/L Potassium (3.5-5.1) mmol/L Chloride (98-107) mmol/L Carbon Dioxide (22-30) mmol/L Anion Gap mmol/L BUN (9-20) mg/dL Creatinine (0.66-1.25) mg/dL Est GFR (CKD-EPI)AfAm (>60 ml/min/1.73 sqM) Est GFR (CKD-EPI)NonAf (>60 ml/min/1.73 sqM) Glucose (74-99) mg/dL Plasma Lactic Acid Ramone (0.7-2.0) mmol/L Calcium (8.4-10.2) mg/dL Magnesium (1.6-2.3) mg/dL Influenza Type A (PCR) Not Detected (Not Detectd) Influenza Type B (PCR) Not Detected (Not Detectd) RSV (PCR) Not Detected (Not Detectd) SARS-CoV-2 (PCR) Not Detected (Not Detectd) Disposition Clinical Impression: Atypical pneumonia, Asthma exacerbation Disposition: HOME SELF-CARE Condition: Fair Instructions (If sedation given, give patient instructions): Pneumonia (ED) Additional Instructions: Is encouraged that he provide herself with nebulized breathing treatment every 4-6 hours for the next 3 days Prescriptions: Albuterol Nebulized (Conc) [Ventolin Nebulized (Conc)] 2.5 mg INHALATION Q6H 25 Days #300 ml Azithromycin [Zithromax Z-pack] 0 mg PO DIRECTED #6 tab Is patient prescribed a controlled substance at d/c from ED?: No Referrals: Jourdan Maurer III, MD [Primary Care Provider] - 1-2 days
[2021-12-01 08:00] LABS: Basophils # (A) 0.1 k/uL (0-0.2); Basophils % (A) 1 %; Eosinophils # (A) 0.4 k/uL (0-0.7); Eosinophils % (A) 5 %; HCT 45.7 % (39.0-53.0); HGB 15.3 gm/dL (13.0-17.5); Lymphocytes # (A) 2.1 k/uL (1.0-4.8); Lymphocytes % (A) 26 %; MCH 29.2 pg (25.0-35.0); MCHC 33.4 g/dL (31.0-37.0); MCV 87.4 fL (80.0-100.0); Mean Platelet Volume 7.6; Monocytes # (A) 0.3 k/uL (0-1.0); Monocytes % (A) 4 %; Neutrophils # (A) 5.1 k/uL (1.3-7.7); Neutrophils % (A) 63 %; Platelet Count 234 k/uL (150-450); RBC 5.23 m/uL (4.30-5.90); RDW 14.5 % (11.5-15.5); WBC 8.1 k/uL (3.8-10.6)
--- NOTE | 2021-12-01 08:05 | XR ---
EXAMINATION TYPE: XR chest 2V DATE OF EXAM: 12/01/2021 COMPARISON: 03/05/2020 INDICATION: Cough short of breath wheezing TECHNIQUE: Single frontal view of the chest is obtained. FINDINGS: The heart size is normal. The pulmonary vasculature is somewhat prominent. Diffuse nonspecific increased lung markings are present. Correlate for atypical pneumonia. Early volu me overload could be considered. IMPRESSION: 1. Scattered increased lung markings and slight prominence of pulmonary vascular markings. Correlate for atypical pneumonia. Early volume overload could be considered.
[2021-12-01 08:06] LABS: African American GFR (CKD) >90 (>60 ml/min/1.73 sqM); Anion Gap 10 mmol/L; Blood Urea Nitrogen 9 mg/dL (9-20); Calcium 8.3 mg/dL (8.4-10.2); Carbon Dioxide 22 mmol/L (22-30); Chloride 107 mmol/L (98-107); Glucose 137 mg/dL (74-99); Non-African American GFR(CKD) >90 (>60 ml/min/1.73 sqM); Potassium 3.7 mmol/L (3.5-5.1); Sodium 139 mmol/L (137-145)
[2021-12-01 08:27] LABS: Influenza A Not Detected (Not Detectd); Influenza B Not Detected (Not Detectd)
[2021-12-01] MEDS ORDERED: cefTRIAXone IN SWFI 1,000 MG/10 ML SYRINGE IVP STA (08:39)
[2021-12-01 08:48] VITALS: BP 132/83
[2021-12-01 08:57] VITALS: PULSE 118; RESP 18
== END 2021-12-01 08:56 | disposition home or self-care (01) ==
LOC: EC 07:05
DX: J18.8 Other pneumonia, unspecified organism (principal); J45.901 Unspecified asthma with (acute) exacerbation; K21.9 Gastro-esophageal reflux disease without esophagitis; F32.A Depression, unspecified; Z20.822 Contact with and (suspected) exposure to COVID-19; Z88.0 Allergy status to penicillin
CPT/HCPCS: 99285; 96374; 96375; 36415; 94640 ×2; 80048; 83605; 83735; 85025; 87636; 71046; J1100; J0696

== ENCOUNTER → 2022-09-08 | Outpatient (CLI) | payer MEDICAID ==
[2022-09-08 14:16] LABS: Basophils # (A) 0.06 X 10*3/uL (0.00-0.10); Basophils % (A) 0.7 %; Eosinophils # (A) 0.29 X 10*3/uL (0.04-0.35); Eosinophils % (A) 3.5 %; HCT 50.5 % (39.6-50.0); HGB 15.9 g/dL (13.0-17.0); Immature Grans, Automated 0.2 %; Lymphocytes % (A) 40.8 %; MCH 28.3 pg (27.0-32.0); MCHC 31.5 g/dL (32.0-37.0); MCV 89.9 fL (80.0-97.0); Mean Platelet Volume 10.4 fL (9.5-12.2); Monocytes # (A) 0.61 X 10*3/uL (0.20-1.00); Monocytes % (A) 7.3 %; NRBC Per 100 WBC 0 /100 WBCS (0.0-0.0); Neutrophils # (A) 3.95 X 10*3/uL (1.80-7.70); Neutrophils % (A) 47.5 %; Platelet Count 300 X 10*3/uL (140-440); RBC 5.62 X 10*6/uL (4.40-5.60); RDW 14.3 % (11.5-14.5); WBC 8.33 X 10*3/uL (4.50-10.00)
[2022-09-08 15:01] LABS: ALT 56 U/L (10-49); AST 32 U/L (14-35); African American GFR (CKD) 113.6 (60.0-200.0); Albumin 4.3 g/dL (3.8-4.9); Alkaline Phosphatase 115 U/L (41-126); Blood Urea Nitrogen 10.6 mg/dL (9.0-27.0); Calcium 9.2 mg/dL (8.7-10.3); Chloride 107 mmol/L (96-109); Chol/HDL Ratio 4.51 Ratio; Globulin 2.3 g/dL (1.6-3.3); Glucose 104 mg/dL (70-110); LDL Cholesterol,Calculated 89.5 mg/dL (0.0-131.0); Potassium 4.6 mmol/L (3.5-5.5); Sodium 141 mmol/L (135-145); Total Protein 6.6 g/dL (6.2-8.2); Uric Acid 5.7 mg/dL (3.7-8.7)
== END | disposition home or self-care (01) ==
LOC: LABWHC1 09:21
PROVIDERS: ATTEND Family Medicine
DX: Z00.01 Encounter for general adult medical examination with abnormal findings (principal); Z13.29 Encounter for screening for other suspected endocrine disorder; J45.20 Mild intermittent asthma, uncomplicated; M10.9 Gout, unspecified; F43.22 Adjustment disorder with anxiety; R73.09 Other abnormal glucose
CPT/HCPCS: 36415; 80053; 80061; 82306; 83036; 84443; 84550; 85025

== ENCOUNTER 2023-08-06 05:32 | Day surgery (SDC) | payer MEDICAID ==
[~2023-08-06 05:32] MED LIST: ceFAZolin 3 GM in SODIUM CHLORIDE 0.9% 100 ML IVPB PRN
[2023-08-06] MEDS ORDERED: ONDANSETRON 4 MG/2 ML VIAL IVP ONE (05:38)
[2023-08-06] MEDS ORDERED: DEXAMETHASONE SOD PHOSPHATE 4 MG/ML 1 ML VIAL IV ONE (05:38)
[2023-08-06] MEDS ORDERED: LACTATED RINGERS 1,000 ML IV SCH (05:38)
[2023-08-06] MEDS ORDERED: fentaNYL (PF) 50 MCG/ML 2 ML AMP IVP ONE (06:43)
[2023-08-06] MEDS ORDERED: MIDAZOLAM 2 MG/2 ML VIAL IVP ONE (06:43)
[2023-08-06] MEDS ORDERED: HYDROmorphone 0.5 MG/0.5 ML SYRINGE IVP PRN (07:00)
[2023-08-06] MEDS ORDERED: ROPIVACAINE 5 MG/ML 30 ML VIAL ONE (07:07)
[2023-08-06] MEDS ORDERED: MIDAZOLAM 2 MG/2 ML VIAL ONE (07:07)
[2023-08-06] MEDS ORDERED: fentaNYL (PF) 50 MCG/ML 2 ML AMP ONE (07:07)
[2023-08-06] MEDS ORDERED: SUCCINYLCHOLINE CHLORIDE 200 MG/10 ML VIAL IV ONE (07:07)
[2023-08-06] MEDS ORDERED: PROPOFOL 10 MG/ML 20 ML VIAL IV ONE (07:07)
[2023-08-06] MEDS ORDERED: LIDOCAINE 4% LTA KIT (4 ML) TOPICAL ONE (07:07)
[2023-08-06] MEDS ORDERED: LIDOCAINE 1% INJ 10MG/ML (20 ML MDV) ONE (07:07)
[2023-08-06] MEDS ORDERED: LIDOCAINE 0.5% (PF) 5 MG/ML (50 ML SDV) SQ ONE (07:12)
[2023-08-06 08:51] VITALS: RESP 16; TEMP 97.9
[2023-08-06 10:00] VITALS: BP 136/92; PULSE 80
--- NOTE | 2023-08-06 10:08 | OP ---
OPERATIVE REPORT DATE OF SERVICE : 08/06/2023 METAL RIVETER: Taj Jeffers PA-C. PREOPERATIVE DIAGNOSES: 1. Right shoulder superior labral tear. 2. Right shoulder bicipital tenosynovitis. 3. Right shoulder subacromial impingement. POSTOPERATIVE DIAGNOSES: 1. Right shoulder displaced type 2 superior labral tear, tearing both anterior and posterior to biceps anchor. 2. Right shoulder type 3 anterolateral acromial spur. PROCEDURE PERFORMED: 1. Right shoulder arthroscopic biceps tenodesis. 2. Right shoulder arthroscopic anterior, superior, and posterior labral debridement. 3. Right shoulder arthroscopic acromioplasty. ANESTHESIA: General. ESTIMATED BLOOD LOSS: Minimal. TOURNIQUET: None. DRAINS: None. COMPLICATIONS: None apparent. DISPOSITION: Postanesthesia care unit. EXAMINATION UNDER ANESTHESIA OF THE RIGHT SHOULDER: Elevation was 160 degrees, external rotation at the side was to 60 degrees. External rotation at 90 degrees of abduction was to 100 degrees, internal rotation at 90 degrees of abduction was to 80 degrees. Sulcus less than 1 cm, anterior translation of the glenoid face, posterior translation of the glenoid face. ARTHROSCOPIC FINDINGS: Right shoulder: 1. Superior labrum displaced, macerated type 2 superior labral tear, tearing both anterior and posterior to the biceps anchor. The biceps anchor was readily displaceable and not intact. There was significant tenosynovitis of the intra- articular portion of the long head of the biceps tendon. 2. Anterior inferior labrum. Normal glenoid labral attachment. 3. Posterior labrum tearing of the posterior labrum from the 9 o'clock position to the 12 o'clock position on the glenoid face. 4. Humeral head cartilage was normal. 5. Rotator cuff was normal. No evidence of tearing of the subscapularis, supraspinatus, or infraspinatus. 6. Glenoid face cartilage was normal. 7. Subacromial space significant fraying of the undersurface of the coracoacromial ligament with a type 3 anterolateral acromial spur. INDICATIONS: Gerry is a pleasant 43-year-old male with right shoulder pain. He has noted weakness as well as significant pain in the shoulder. He has been through a fairly significant course of nonoperative treatment up to this point. Physical examination and MRI reveals tearing of the superior labrum as well as bicipital tenosynovitis. He also had a type 3 anterolateral acromial spur. At this point in time, he feels that he has failed an operative treatment and would like to proceed with operative intervention. A long discussion was held with the patient with regard to the treatment options. The risks of procedure were all discussed in detail. These risks included but are not limited to risk of infection, nerve damage, bleeding, pain, and a small risk of deep vein thrombosis which could lead to fatal pulmonary embolism. Further risks include the possibility for biceps contour change with a biceps tenodesis. The patient understands the operation as well as the fact that there is no guarantee of improvement of his symptoms. Appropriate informed consent was obtained. DESCRIPTION OF PROCEDURE: The patient was identified in the preoperative holding area. Surgical site was marked by both the patient and myself. He was given 2 g of Ancef IV prophylactic purposes. He was then transported to the operative suite. He was placed supine on the operating room table. The patient was then intubated endotracheally and received general anesthesia throughout the operative procedure. Examination under anesthesia was then performed, and the findings were as noted above. The patient was then placed in the beach chair position well-padded in preparation for surgery. Great care was taken to ensure the cervical spine is in neutral alignment well padded and maintained that way throughout the operative procedure. Great care was also taken to ensure that his legs were appropriately padded as well. The patient's right upper extremity was then prepped and draped in the usual sterile fashion. Standard surgical pause was undertaken to ensure that we were operating on the correct site and that appropriate preoperative antibiotics had been given. All staff in the room were in agreement, and we proceeded. The acromion as well as the AC joint, clavicle, and coracoid were marked with a surgical pen. The skin of the anticipated portal sites was also marked with a surgical pen. The skin of the anticipated portal sites was then injected with 0.25% Marcaine with epinephrine. I then proceeded to make the posterior portal. A 30-degree arthroscope was introduced into the glenohumeral joint through this portal. The arthroscopic pump pressure was set at 40 mmHg and maintained at that level throughout the entire case. Next, utilizing an 18-gauge spinal needle to help localize the placement, the anterior superior portal was made. This made just underneath the biceps tendon high in the rotator interval. A small blue 5.75 mm cannula was then placed, and the outflow was then done through this cannula. Diagnostic arthroscopy of the shoulder was then performed. The findings were as noted above. Great care was taken to probe superior labral complex as well as the biceps anchor. The biceps anchor was not firmly attached. He had very significant tearing of the superior labrum. This was extended both anterior and posterior to the biceps anchor. The intra-articular portion of long head of the biceps tendon did have significant tenosynovitis as well. At this point, I proceeded with a biceps tenodesis. I utilized the Arthrex Loop N Tack system. The loop suture was then placed through the intra-articular portion of the long head of the biceps tendon secured tightly, and then it was brought back around distally. This suture was then brought out through the anterior portal. I then placed the awl just superior to the superior attachment of the subscapularis on the lesser tuberosity. The Loop N Tack suture was then threaded through a 4.75 mm BioComposite anchor. This was tensioned appropriately, and the anchor was then placed with an excellent purchase in bone. This provided a nice secure tenodesis of the long head of the biceps tendon to the superior aspect of the bicipital groove. I then proceeded to debride the torn loose tissue of the superior labrum. It was debrided anteriorly, superiorly, and posteriorly back to stable tissue. I then inspected the rotator cuff from intra-articular. The subscapularis, supraspinatus, and infraspinatus were pristine from intra-articular. There was no evidence of tearing of the rotator cuff. At this point in time, no further work was deemed necessary from intra-articular. The arthroscope was removed from glenohumeral joint and utilizing the same, posterior skin incision was placed in the subacromial space. Next, utilizing an 18-gauge spinal needle to help localize the placement, a lateral portal was made under direct visualization. Subacromial bursectomy was then performed utilizing synovial shaver as well as the ArthroCare wand. There was significant fraying of the undersurface of the coracoacromial ligament. This was then taken down utilizing ArthroCare wand. This exposed underlying type 3 anterolateral acromial spur. I then proceeded with an acromioplasty. Utilizing the synovial shaver in a evelin type fashion, the acromioplasty was completed. When the acromioplasty was complete, the arthroscope was placed in the lateral portal, and the shaver placed posteriorly to ensure that it was adequate and coplanar at the posterior aspect of the acromion. I then proceeded to inspect the rotator cuff with the scope in the lateral portal. The shoulder was taken through a full range of motion. The bursal surface of the rotator cuff was pristine without any evidence of tearing. At this in point time, no further work was deemed necessary. The shoulder was thoroughly irrigated and then drained with an outflow cannula. The arthroscopic was removed from the shoulder. The arthroscopic portals were then closed with 3-0 nylon in an interrupted suture. Sterile compressive dressings were applied. The patient's right upper extremity was placed in a standard sling. All sponge and needle counts were deemed correct prior to closure. The patient tolerated the procedure without apparent complication. He was transferred to the recovery room in stable condition. MMODL / IJN: [id number] /
--- NOTE | 2023-08-06 13:14 | P.ANPRN ---
Procedure Note - Anesthesia - Nerve Block Performed Right Interscalene Single Time Out Performed: Yes (0643) Date of Procedure: 08/06/23 Procedure Start Time: 06:44 Procedure Stop Time: 06:51 Location of Patient: PreOp Indication: Acute Post-Operative Pain, Requested by Surgeon Specifically requested for management of pain by DrRosemary: Austyn Azevedo (') Sedation Type: Sedate with meaningful contact maintained Preparation: Sterile Prep Position: Supine Catheter: None Needle Types: Pajunk Needle Gauge: 21 Ultrasound used to visualize needle placement: Yes Ultrasound used to observe medication spread: Yes Injectate: 0.5% Ropivacaine (see comment for volume) (30cc) Blood Aspirated: No Pain Paresthesia on Injection Noted: No Resistance on Injection: Normal Image Stored and Saved: Yes Events: Uneventful and Well Tolerated
== END 2023-08-06 10:01 | disposition home or self-care (01) ==
LOC: OR 05:32
PROVIDERS: ATTEND Orthopaedic Surgery Sports Medicine
DX: S43.431A Superior glenoid labrum lesion of right shoulder, initial encounter (principal); M65.811 Other synovitis and tenosynovitis, right shoulder; H91.90 Unspecified hearing loss, unspecified ear; E78.5 Hyperlipidemia, unspecified; F10.90 Alcohol use, unspecified, uncomplicated; G47.33 Obstructive sleep apnea (adult) (pediatric); F31.9 Bipolar disorder, unspecified; E66.01 Morbid (severe) obesity due to excess calories; Z77.120 Contact with and (suspected) exposure to mold (toxic); Z91.048 Other nonmedicinal substance allergy status; Z91.010 Allergy to peanuts; Z79.51 Long term (current) use of inhaled steroids; Z79.899 Other long term (current) drug therapy; X58.XXXA Exposure to other specified factors, initial encounter
CPT/HCPCS: 64415; 29828; 29826; C1713; J2250; J0330; J1100; J0690; J2405; J2001 ×2; J3010; J2795; J2704

== ENCOUNTER → 2023-09-23 | Outpatient (CLI) | payer MEDICAID ==
[2023-09-23 15:20] LABS: ALT 78 U/L (10-49); AST 48 U/L (14-35); Albumin 4.6 g/dL (3.8-4.9); Alkaline Phosphatase 95 U/L (41-126); BUN/Creat Ratio 11.33 Ratio (12.00-20.00); Blood Urea Nitrogen 13.6 mg/dL (9.0-27.0); Calcium 9.8 mg/dL (8.7-10.3); Carbon Dioxide 24.4 mmol/L (21.6-31.8); Chloride 103 mmol/L (96-109); Chol/HDL Ratio 4.91 Ratio; Globulin 2.7 g/dL (1.6-3.3); Glucose 105 mg/dL (70-110); LDL Cholesterol,Calculated 82.5 mg/dL (0.0-131.0); Potassium 4.5 mmol/L (3.5-5.5); Sodium 142 mmol/L (135-145); Total Protein 7.3 g/dL (6.2-8.2); Uric Acid 6.3 mg/dL (3.7-8.7)
[2023-09-23 15:34] LABS: Basophils # (A) 0.07 X 10*3/uL (0.00-0.10); Basophils % (A) 0.7 %; Eosinophils % (A) 6.3 %; HCT 51.3 % (39.6-50.0); HGB 16.7 g/dL (13.0-17.0); Lymphocytes # (A) 4.15 X 10*3/uL (0.90-5.00); Lymphocytes % (A) 43.5 %; MCH 29.2 pg (27.0-32.0); MCHC 32.6 g/dL (32.0-37.0); MCV 89.8 FL (80.0-97.0); Mean Platelet Volume 10.5 FL (9.5-12.2); Monocytes # (A) 0.58 X 10*3/uL (0.20-1.00); Monocytes % (A) 6.1 %; NRBC Per 100 WBC 0 X 10*3/uL (0.00-0.01); Neutrophils # (A) 4.11 X 10*3/uL (1.80-7.70); Neutrophils % (A) 43.2 %; Platelet Count 297 X 10*3/uL (140-440); RBC 5.71 X 10*6/uL (4.40-5.60); RDW 13.9 % (11.5-14.5); WBC 9.53 X 10*3/uL (4.50-10.00)
== END | disposition home or self-care (01) ==
LOC: LABWHC1 10:21
PROVIDERS: ATTEND Family Medicine
DX: M75.101 Unspecified rotator cuff tear or rupture of right shoulder, not specified as traumatic (principal); J45.998 Other asthma; E78.2 Mixed hyperlipidemia; M10.9 Gout, unspecified; R73.9 Hyperglycemia, unspecified
CPT/HCPCS: 36415; 80053; 80061; 83036; 84443; 84550; 85025

== ENCOUNTER → 2025-02-24 | Outpatient (CLI) | payer MEDICAID ==
[2025-02-24 10:15] LABS: Basophils # (A) 0.02 X 10*3/uL (0.00-0.10); Basophils % (A) 0.3 %; Eosinophils # (A) 0.29 X 10*3/uL (0.04-0.35); Eosinophils % (A) 4.2 %; HGB 15.1 g/dL (13.0-17.0); Lymphocytes # (A) 2.78 X 10*3/uL (0.90-5.00); Lymphocytes % (A) 40.5 %; MCH 29.8 pg (27.0-32.0); MCHC 32.8 g/dL (32.0-37.0); MCV 90.7 FL (80.0-97.0); Monocytes # (A) 0.51 X 10*3/uL (0.20-1.00); Monocytes % (A) 7.4 %; NRBC Per 100 WBC 0 X 10*3/uL (0.00-0.01); Neutrophils # (A) 3.25 X 10*3/uL (1.80-7.70); Neutrophils % (A) 47.3 %; Platelet Count 243 X 10*3/uL (140-440); RBC 5.07 X 10*6/uL (4.40-5.60); WBC 6.87 X 10*3/uL (4.50-10.00)
[2025-02-24 10:58] LABS: Chol/HDL Ratio 5.22 Ratio; LDL Cholesterol,Calculated 118.7 mg/dL (0.0-131.0)
[2025-02-24 10:59] LABS: ALT 72 U/L (10-49); AST 45 U/L (14-35); Albumin 4.5 g/dL (3.8-4.9); Albumin/Globulin Ratio 2.14 Ratio (1.60-3.17); Alkaline Phosphatase 84 U/L (41-126); BUN/Creat Ratio 14.92 Ratio (12.00-20.00); Blood Urea Nitrogen 17.9 mg/dL (9.0-27.0); Calcium 8.9 mg/dL (8.7-10.3); Carbon Dioxide 22.6 mmol/L (21.6-31.8); Chloride 103 mmol/L (96-109); Globulin 2.1 g/dL (1.6-3.3); Glucose 105 mg/dL (70-110); Potassium 4.4 mmol/L (3.5-5.5); Prostate Specific Antigen 0.66 ng/mL (0.000-2.500); Sodium 137 mmol/L (135-145); T4, Free (Free Thyroxine) 1.14 ng/dL (0.80-1.80); Total Bilirubin 1.4 mg/dL (0.3-1.2); Total Protein 6.6 g/dL (6.2-8.2); Uric Acid 7.9 mg/dL (3.7-8.7)
== END | disposition home or self-care (01) ==
LOC: LABWHC1 07:01
PROVIDERS: ATTEND Family Medicine
DX: Z00.01 Encounter for general adult medical examination with abnormal findings (principal); M10.9 Gout, unspecified; E78.2 Mixed hyperlipidemia; N40.0 Benign prostatic hyperplasia without lower urinary tract symptoms; F51.11 Primary hypersomnia; E55.9 Vitamin D deficiency, unspecified; D51.9 Vitamin B12 deficiency anemia, unspecified; R73.9 Hyperglycemia, unspecified
CPT/HCPCS: 36415; 80053; 80061; 82306; 82607; 83036; 84153; 84402; 84403; 84439; 84443; 84550; 85025

== ENCOUNTER → 2025-03-14 | Outpatient (CLI) | payer MEDICAID ==
[2025-03-14 16:13] VITALS: BP 131/87; PULSE 94; RESP 16; TEMP 97.6
--- NOTE | 2025-03-14 17:08 | P.SLEEP ---
History of Present Illness H&P Date: 03/14/25 This is a obese 45-year-old male patient was coming in for excessive tiredness and sleepiness during the day. 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 He also has history of chronic bronchial asthma, hyperlipidemia and gout. No history of any cardiac disease. No atrial fibrillation. No congestion heart failure. The patient has some limited soft snoring. He wakes up tired during the day despite averaging around 7 to 8 hours of sleep. He goes to bed at 10 PM and he wakes up 6:30 AM in the morning. He wakes up once in the middle of the night to urinate. He grinds his teeth. No sleepwalking. No sleep talking. No heartburn. No palpitations. No sleep paralysis. No hallucinations. No cataplexy. His current Auburn score is at 10. The patient Fall asleep at any time and he can take a nap whenever he is given the opportunity to do so. His weight has remained stable over the past 1 year, however over the past 5 years, the patient has gained around 40 pounds. His sleep is fragmented and the patient wakes up at least 4-5 times in the middle of the night. He sleeps on his side. He is a mouth breather. No history of smoking. No history of alcoholism. No substance abuse. No history of trauma. Review of Systems Constitutional: Reports as per HPI, Reports daytime sleepiness, Reports fatigue, Reports weight gain Eyes: denies as per HPI, denies blurred vision, denies bulging eye, denies decreased vision, denies diplopia, denies discharge, denies dry eye, denies irritation, denies itching, denies pain, denies photophobia, denies loss of peripheral vision, denies loss of vision, denies tunnel vision/blind spots Ears: deny: decreased hearing, ear discharge, earache, tinnitus Ears, nose, mouth and throat: Reports as per HPI Breasts: absent: as per HPI, gynecomastia Cardiovascular: Reports as per HPI Respiratory: Reports snoring Gastrointestinal: Reports as per HPI Genitourinary: Reports as per HPI Musculoskeletal: Reports as per HPI Musculoskeletal: absent: ankle pain, ankle stiffness, ankle swelling, as per HPI, elbow pain, elbow stiffness, elbow swelling, foot pain, foot stiffness, foot swelling, hand pain, hand stiffness, hand swelling, hip pain, hip stiffness, hip swelling, knee pain, knee stiffness, knee swelling, shoulder pain, shoulder stiffness, shoulder swelling, wrist pain, wrist stiffness, wrist swelling Integumentary: Reports as per HPI Neurological: Reports as per HPI Psychiatric: Reports as per HPI (Bipolar disorder), Reports anxiety Endocrine: Reports as per HPI, Reports fatigue Hematologic/Lymphatic: Reports as per HPI Allergic/Immunologic: Reports as per HPI Past Medical History Past Medical History: Asthma, GERD/Reflux, Seizure Disorder Additional Past Medical History / Comment(s): Bronchitis, febrile seizures as a child History of Any Multi-Drug Resistant Organisms: None Reported Past Surgical History: Adenoidectomy, Tonsillectomy Additional Past Surgical History / Comment(s): EGD Past Anesthesia/Blood Transfusion Reactions: Previous Problems w/ Anesthesia Additional Past Anesthesia/Blood Transfusion Reaction / Comment(s): wake up during surgery Past Psychological History: Bipolar Additional Psychological History / Comment(s): Pt resides with his spouse and their 2 children and at times his 3 children. Pt is independent. Smoking Status: Never smoker Past Alcohol Use History: None Reported Past Drug Use History: None Reported - Past Family History Father Family Medical History: No Reported History Mother Family Medical History: Cancer Additional Family Medical History / Comment(s): breast Cancer Medications and Allergies Home Medications Medication Instructions Recorded Confirmed Type Albuterol Inhaler [Ventolin Hfa 2 puff INHALATION RT-QID PRN 03/05/20 08/06/23 History Inhaler] Montelukast Sodium [Singulair] 10 mg PO HS 07/09/21 03/14/25 History allopurinoL [Zyloprim] 200 mg PO HS 07/09/21 03/14/25 History Acetaminophen Tab [Tylenol] 650 mg PO Q4HR PRN tab 07/12/21 08/06/23 Rx Nicotine Gum (Polacrilex) 2 mg BUCCAL Q4HR PRN 28 Days 07/12/21 08/06/23 Rx [Nicorette] Albuterol Nebulized (Conc) 2.5 mg INHALATION Q6H PRN 07/31/23 03/14/25 History [Ventolin Nebulized (Conc)] Ibuprofen [Advil] 600 mg PO Q6HR PRN 07/31/23 08/06/23 History Simvastatin [Zocor] 20 mg PO HS 07/31/23 03/14/25 History Ziprasidone [Geodon] 40 mg PO BID 07/31/23 03/14/25 History hydrOXYzine pamoate [Vistaril] 50 mg PO HS 07/31/23 03/14/25 History Doxycycline Hyclate 100 mg PO BID #10 tab 08/06/23 Rx HYDROcodone/APAP 7.5-325MG [[place] 1 - 2 each PO Q6HR PRN #15 tab 08/06/23 Rx 7.5-325] Ondansetron [Zofran] 4 mg PO Q8HR PRN #10 tab 08/06/23 Rx Allergies Allergy/AdvReac Type Severity Reaction Status Date / Time amoxicillin [Amoxicillin] Allergy Dyspnea Verified 08/06/23 05:53 corn [[place]] Allergy Dyspnea Verified 08/06/23 05:53 house dust [House Dust] Allergy Dyspnea Verified 08/06/23 05:53 mold Allergy Dyspnea Verified 08/06/23 05:53 peanut Allergy Dyspnea Verified 08/06/23 05:53 Penicillins Allergy Dyspnea Verified 08/06/23 05:53 tree nut Allergy Dyspnea Verified 08/06/23 05:53 Physical Exam Vitals: Vital Signs Temp Pulse Resp BP Pulse Ox 03/14/25 16:12 97.6 F 94 16 131/87 96 Intake and Output 03/14/25 03/14/25 03/14/25 06:59 14:59 22:59 Other: Weight 131.088 kg The patient appeared well nourished and normally developed. Vital signs as documented. Mallampati class IV and the patient has a body mass index of 40.8 Head exam is unremarkable. No scleral icterus or corneal arcus noted. Neck is without jugular venous distension, thyromegaly, or carotid bruits. Carotid upstrokes are brisk bilaterally. Lungs are clear to auscultation and percussion. Cardiac exam reveals the PMI to be normally sized and situated. Rhythm is regular. First and second heart sounds normal. No murmurs, rubs or gallops. Abdominal exam reveals normal bowel sounds, no masses, no organomegaly and no aortic enlargement. Extremities are nonedematous and both femoral and pedal pulses are normal. Examination of the skin revealed no evidence of significant rashes, suspicious a ppearing nevi or other concerning lesions. Neurologically, the patient is awake and alert and the patient does not have any focal neurological deficit. Cranial nerves are essentially intact. Assessment and Plan Plan: Chronic hypersomnia with an Auburn score of 10 and increased likelihood for obstructive sleep apnea. Drug-induced hypersomnia cannot be completely ruled out. Obesity with a BMI of 40.8 Mallampati class IV with chronic snoring Chronic anxiety/bipolar disorder maintained on a combination of Atarax and ziprasidone Gout Hyperlipidemia Chronic bronchial asthma which is currently inactive and stable Plan Encourage weight loss Proceed with a polysomnography to rule out the possibility of obstructive sleep apnea Maintain regular sleep schedule and good sleep hygiene measures Consider eliminating the Atarax specially if there is no significant sleep breathing disorder Patient is typically followed up by [facility] and has not seen a psychiatrist for several years as his bipolar disorder/anxiety has been under adequate control. Will make final recommendations following the results of the polysomnography. Sleep Note - Sleep Data ESS Total: 10 - Sleep Note Sleep Note: Temperature: 97.6 F Pulse Rate: 94 Respiratory Rate: 16 Blood Pressure: 131/87 SpO2: 96 Height: 5 ft 10.5 in Weight: 131.088 kg BMI: Neck Circumference: 20.2
== END ==
LOC: 3 N SLEEP 15:41
PROVIDERS: ATTEND Internal Medicine Critical Care Medicine
DX: G47.33 Obstructive sleep apnea (adult) (pediatric) (principal); E66.9 Obesity, unspecified; Z68.41 Body mass index [BMI] 40.0-44.9, adult; F31.9 Bipolar disorder, unspecified; F41.9 Anxiety disorder, unspecified; M10.9 Gout, unspecified; J45.909 Unspecified asthma, uncomplicated; Z88.0 Allergy status to penicillin; Z88.1 Allergy status to other antibiotic agents; Z91.018 Allergy to other foods; Z91.010 Allergy to peanuts; Z91.048 Other nonmedicinal substance allergy status
CPT/HCPCS: 99211